=== PATIENT | female | born 1975 | race Caucasian/White ===

== ENCOUNTER 2018-03-11 12:15 | Observation (INO) | payer MEDICARE ==
[2018-03-11 12:50] LABS: #Basophils 0.1 thou/uL (0.0-0.2); #Eosinphils 0.2 thou/uL (0.0-0.7); #Lymphocytes 2.3 thou/uL (1.20-3.40); #Monocytes 0.6 thou/uL (0.11-0.59); #Neutrophils 5.9 thou/uL (1.40-6.50); %Eosinophils 1.8 % (0.0-10.0); %Lymphocytes 25.3 % (21.0-51.0); %Monocytes 6.3 % (0.0-10.0); %Neutrophils 65.7 % (42.0-75.0); Hemoglobin 14.9 g/dL (12.0-16.0); Mean Corpuscular HGB CONC 32.2 g/dL (32.0-36.0); Mean Corpuscular Hemoglobin 31.3 pg (27.0-31.0); Mean Corpuscular Volume 97.3 fL (78.0-98.0); Mean Platelet Volume 7.1 fL (7.4-10.4); Platelet Count 340 thou/uL (130-400); RBC Distribution Width 11.6 % (11.5-14.5); Red Blood Cell (RBC) Count 4.75 mill/uL (4.20-5.40)
--- NOTE | 2018-03-11 13:05 | RAD ---
CHEST 1 VIEW: HISTORY: Pain. COMPARISON: None. FINDINGS: Normal cardiac silhouette. Pulmonary vessels and hilum are normal. Blunting of the right costophren ic angle may be due to small effusion or atelectasis. There is partial obscuration of the left hemid iaphragm. No pneumothorax. IMPRESSION: Bibasilar opacities of lungs suggesting a combination of pleural and parenchymal changes. Continued surveillance is recommended. POS: [facility]
[2018-03-11 13:12] LABS: ALT (SGPT) 7 U/L (8-55); AST (SGOT) 14 U/L (5-34); Alkaline Phosphatase 69 U/L (40-150); Anion Gap 17 mmol/L (10-20); BUN (Urea Nitrogen) 9 mg/dL (7.0-18.7); Bilirubin, Total 0.7 mg/dL (0.2-1.2); Calc. Creatinine Clearance 0 mL/min (70-130); Calcium 10.2 mg/dL (7.8-10.44); Carbon Dioxide 22 mmol/L (22-29); Chloride 106 mmol/L (98-107); Estimated GFR-MDRD 75; Globulin 3.1 g/dL (2.4-3.5); Glucose 87 mg/dL (70-105); Protein, Total 7.1 g/dL (6.0-8.3); Sodium 141 mmol/L (136-145)
[2018-03-11 13:17] LABS: CKMB 0.5 ng/mL (0-6.6); Troponin I Less than 0.010 ng/mL (< 0.028)
[2018-03-11] MEDS ORDERED: Ondansetron PF 4 MG/2 ML Vial ONE (13:37)
[2018-03-11] MEDS ORDERED: Famotidine/PF 20 mg/2ml Vial ONE (14:12)
[2018-03-11 15:39] LABS: Troponin I Less than 0.010 ng/mL (< 0.028)
[2018-03-11 16:13] LABS: Bilirubin Moderate (Negative); Blood, Urine Negative (Negative); Clarity TURBID (Clear); Glucose, Urine (Dipstick) Negative (Negative); Leukocyte Small (Negative); Nitrite Negative (Negative); Protein, Urine (Dipstick) Trace mg/dL (Neg-Trace); Specific Gravity, Urine 1.028 (1.002-1.036)
[2018-03-11 16:15] LABS: Bacteria/HPF 4+ HPF (None Seen); Squamous Epithelial 21-50 HPF (0-3)
[2018-03-11 16:18] LABS: Pathc Cast-AUWi Flag 6.96 (0-2.49)
[2018-03-11 16:22] LABS: Amphetamine Not Detected (NotDetected); Barbiturates Screen Not Detected (NotDetected); Benzodiazepine Screen Not Detected (NotDetected); Cocaine Metabolite Screen Not Detected (NotDetected); Medtox Control Line Valid? VALID (VALID); Medtox Reader # READER 1; Methadone Not Detected (NotDetected); Methamphetamine Not Detected (NotDetected); Opiate Screen Not Detected (NotDetected); Oxycodone Screen Not Detected (NotDetected); Phencyclidine (PCP) Not Detected (NotDetected); THC/Cannabinoid Screen Not Detected (NotDetected); Tricyclic Screen Detected (NotDetected)
[2018-03-11] MEDS ORDERED: Nitroglycerin 0.4 MG TAB (25 Tab Bottle) PO PRN (16:29)
[2018-03-11] MEDS ORDERED: Calcium Carbonate 500 MG ChewTAB PO PRN (16:29)
[2018-03-11] MEDS ORDERED: Ondansetron ODT 4 MG TAB PO PRN (16:29)
[2018-03-11 16:30] LABS: Hyaline Casts/LPF NONE SEEN LPF (0-3 Hyaline); Manual Microscopic Reviewed? No Path Casts Seen; RBC/HPF None Seen HPF (0-3); Renal Epithelial None Seen HPF (0-3); Transitional Epithelial NONE SEEN HPF (0-3)
[2018-03-11] MEDS ORDERED: Pantoprazole 40 MG VIAL IVP SCH (16:30)
[2018-03-11 16:45] LABS: Pregnancy Test - Urine (BHCG) Negative (Negative); Pregu Control Background? CLEAR/WHITE (CLR/WHITE); Pregu Control Bar Appear? YES (CONTROL BAR); Specific Gravity 1.028 (1.002-1.036)
--- NOTE | 2018-03-11 17:03 | HP ---
DATE OF ADMISSION: 03/11/2018 PRIMARY CARE PHYSICIAN: Alexander aquino. CHIEF COMPLAINT: Chest discomfort. HISTORY OF PRESENT ILLNESS: The patient is a 42-year-old female who presented to the emergency room with chest discomfort that started last night. It progressively got worse this morning. The pain wa s mainly in the epigastric region. It got worse whenever she took deep breaths. She had several epi sodes of vomiting. She was unable to keep any food down. She denies any aggravating or relieving fa ctors. No diaphoresis, palpitations, syncope reported. She denies recent immobilization or travel. In the emergency room, initial vital signs showed temperature 98.3, respirations 17, pulse rate of 86 with a blood pressure 175/93 with O2 saturation 100% on room air. EKG showed sinus rhythm without s ignificant ST-T wave changes. Chest x-ray was negative for infiltrate. She received Zofran, Pepcid, and IV fluids in the emergency room. PAST MEDICAL HISTORY: 1. Peripheral neuropathy. 2. Seizure disorder. 3. Anxiety. 4. Obesity. PAST SURGICAL HISTORY: 1. Appendectomy. 2. Cholecystectomy. 3. Hernia repair. 4. Exploratory laparotomy, details unavailable. ALLERGIES: No known drug allergies. CURRENT HOME MEDICATIONS: The patient is unable to recall all of her medication. She states that qing argueta takes gabapentin, Keppra, Singulair and Flexeril. SOCIAL HISTORY: Patient currently lives at the [place]. She denies current use of tobacco, alcohol or drug use. FAMILY HISTORY: Negative for premature coronary artery disease. REVIEW OF SYSTEMS: The following complete review of systems was negative, unless otherwise mentioned in the HPI or below: Constitutional: Weight loss or gain, ability to conduct usual activities. Sk in: Rash, itching. Eyes: Double vision, pain. ENT/Mouth: Nose bleeding, neck stiffness, pain, te nderness. Cardiovascular: Palpitations, dyspnea on exertion, orthopnea. Respiratory: Shortness of breath, wheezing, cough, hemoptysis, fever or night sweats. Gastrointestinal: Poor appetite, abdom inal pain, heartburn, nausea, vomiting, constipation, or diarrhea. Genitourinary: Urgency, frequenc y, dysuria, nocturia. Musculoskeletal: Pain, swelling. Neurologic/Psychiatric: Anxiety, depressio n. Allergy/Immunologic: Skin rash, bleeding tendency. PHYSICAL EXAMINATION: VITAL SIGNS: As discussed above. GENERAL: A 42-year-old female in no apparent distress. Denies any chest discomfort. HEENT: Head atraumatic, normocephalic. Sclerae are anicteric. Moist mucous membrane, no oral lesio n. NECK: Supple, no JVD, no carotid bruit. LUNGS: Clear to auscultation bilaterally, no wheezing, rales or rhonchi. HEART: S1, S2 present. Regular rate and rhythm. No murmur, rubs, or gallops appreciated. ABDOMEN: Soft. There was epigastric tenderness without any rebound, guarding, no costovertebral ang le tenderness. EXTREMITIES: No edema or calf tenderness. NEUROLOGIC: Grossly nonfocal, moves all four extremities. PSYCHIATRY: Alert, awake, oriented x3. SKIN: Warm and dry. LYMPH NODES: No palpable lymph nodes in the neck. PERIPHERAL VASCULAR: Radial pulses palpable bilaterally. MUSCULOSKELETAL: No joint swelling or tenderness. LABORATORY AND X-RAY FINDINGS: Urine drug screen was essentially negative. CBC showed WBC 9 with he moglobin 14.9, hematocrit 46.2, platelet 340. Chemistries showed sodium 141, potassium 4, chloride 1 06, bicarbonate 22, BUN 9, creatinine 0.84. LFTs in normal range. Lipase was normal. Troponin nega tive. EKG by my review as discussed above. Chest x-ray by my review as discussed above. IMPRESSION AND PLAN: 1. Epigastric pain with nausea, vomiting. Her symptoms are probably consistent with acute gastroent eritis. She had a normal bowel movement this morning. We will get a KUB to rule out obstruction giv en her history of multiple abdominal surgeries. Chest pain is unlikely to be cardiac. We will start her on gentle IV fluid. Start proton pump inhibitors. Antiemetics. 2. Peripheral neuropathy. We will continue gabapentin once dose confirmed. 3. Seizure disorder. We will continue Keppra once dose confirmed. 4. Mild intermittent asthma. We will continue Singulair. Plan of care was discussed with the patient in detail. She stated understanding.
--- NOTE | 2018-03-11 17:31 | RAD ---
TWO VIEW ABDOMEN: 03/11/18 Supine and upright views obtained. INDICATION: Epigastric pain. FINDINGS: Stool and gas throughout the colon. The bowel gas pattern unremarkable. No evidence of free intraperi toneal air. Postop changes are seen with radiopaque suture and surgical clips overlying the upper abd omen. IMPRESSION: No acute abnormality apparent. POS: [facility]
[2018-03-11 18:14] VITALS: BMI 36.2
[2018-03-11] MEDS: Sodium Chloride 0.9% 1,000 ML IV SCH (20:24)
[2018-03-11] MEDS: cefTRIAXone\\ROCEPHIN 1 GM in Sodium Chloride 0.9% 100 ML IVPB SCH (20:24)
[2018-03-11] MEDS: Pantoprazole 40 MG VIAL IVP SCH (20:25)
[2018-03-11] MEDS: Acetaminophen 325 MG TAB PO PRN (20:25)
[2018-03-11] MEDS ORDERED: levETIRAcetam 500 MG TAB PO SCH (21:00)
[2018-03-11] MEDS: Montelukast Sodium 10 mg Tablet PO SCH (21:09)
[2018-03-11] MEDS: Cyclobenzaprine 10 MG TAB PO PRN (21:09)
[2018-03-11] MEDS: HYDROcodone/Acetaminophen 10/325 mg Tablet PO PRN (21:10)
[2018-03-11] MEDS: levETIRAcetam 500 MG TAB PO SCH (21:10)
[2018-03-11] MEDS: Ondansetron PF 4 MG/2 ML Vial IVP PRN (21:11)
[2018-03-11] MEDS: Simethicone Chewable 80 MG TAB PO PRN (23:09)
[2018-03-12] MEDS: Ondansetron PF 4 MG/2 ML Vial IVP PRN ×2 (01:28→18:16)
[2018-03-12 08:20] LABS: #Basophils 0.1 thou/uL (0.0-0.2); #Eosinphils 0.2 thou/uL (0.0-0.7); #Lymphocytes 2.4 thou/uL (1.20-3.40); #Monocytes 0.6 thou/uL (0.11-0.59); #Neutrophils 4.9 thou/uL (1.40-6.50); %Basophils 0.7 % (0.0-1.0); %Eosinophils 2.6 % (0.0-10.0); %Lymphocytes 29.6 % (21.0-51.0); %Monocytes 7.5 % (0.0-10.0); %Neutrophils 59.6 % (42.0-75.0); Hemoglobin 13.3 g/dL (12.0-16.0); Mean Corpuscular HGB CONC 31.4 g/dL (32.0-36.0); Mean Corpuscular Hemoglobin 30.8 pg (27.0-31.0); Platelet Count 276 thou/uL (130-400); RBC Distribution Width 11.5 % (11.5-14.5); White Blood Cell (WBC) Count 8.2 thou/uL (4.8-10.8)
[2018-03-12 08:41] LABS: ALT (SGPT) 7 U/L (8-55); AST (SGOT) 14 U/L (5-34); Albumin 3.6 g/dL (3.5-5.0); Alkaline Phosphatase 63 U/L (40-150); Anion Gap 14 mmol/L (10-20); BUN (Urea Nitrogen) 6 mg/dL (7.0-18.7); Bilirubin, Total 0.5 mg/dL (0.2-1.2); Calc. Creatinine Clearance 138 mL/min (70-130); Calcium 9.3 mg/dL (7.8-10.44); Carbon Dioxide 22 mmol/L (22-29); Chloride 105 mmol/L (98-107); Estimated GFR-MDRD 84; Globulin 2.7 g/dL (2.4-3.5); Glucose 80 mg/dL (70-105); Potassium 4.1 mmol/L (3.5-5.1); Protein, Total 6.3 g/dL (6.0-8.3); Sodium 137 mmol/L (136-145)
[2018-03-12] MEDS ORDERED: Iopamidol 370 76% 50 ML VIAL FS ONE (08:53)
[2018-03-12] MEDS ORDERED: ISOVUE-370 76%-LOCM 1 ML ONE (08:53)
[2018-03-12] MEDS ORDERED: Gabapentin 300 MG CAP PO SCH (09:00)
[2018-03-12] MEDS: HYDROcodone/Acetaminophen 10/325 mg Tablet PO PRN ×2 (09:32→22:11)
[2018-03-12] MEDS: levETIRAcetam 500 MG TAB PO SCH ×2 (09:33→22:04)
[2018-03-12] MEDS: Aspirin 81 mg Enteric Coated Tablet PO SCH (09:33)
[2018-03-12] MEDS: lamoTRIgine 100 MG TAB PO SCH (09:33)
[2018-03-12] MEDS: Sodium Chloride 0.9% 1,000 ML IV SCH ×2 (09:33→23:01)
[2018-03-12] MEDS: Pantoprazole 40 MG VIAL IVP SCH ×2 (09:33→22:06)
[2018-03-12] MEDS: Simethicone Chewable 80 MG TAB PO PRN (15:35)
[2018-03-12] MEDS: Acetaminophen 325 MG TAB PO PRN (15:35)
[2018-03-12] MEDS ORDERED: Lidocaine 2% Viscous Solution 10 ML, Aluminum & Magnesium Hydroxide 30 ML SSW SCH (16:00)
--- NOTE | 2018-03-12 17:35 | PDOC.PN ---
- Subjective Encounter Start Date: 03/12/18 Encounter Start Time: 17:30 Subjective: examined patient this morning and again this evening -: f/u of admission for epigastric/chest pain - Objective Resuscitation Status: Resuscitation Status FULL:Full Resuscitation Vital Signs & Weight: Vital Signs (12 hours) Temp Pulse Resp BP Pulse Ox 03/12/18 15:07 97.9 F 69 15 114/80 100 03/12/18 11:33 98.4 F 83 18 123/84 94 L 03/12/18 07:59 98 03/12/18 07:37 97.6 F 87 18 123/61 99 Weight Weight 89.868 kg I&O: 03/11/18 03/12/18 03/13/18 06:59 06:59 06:59 Intake Total 100 956 Balance 100 956 Result Diagrams: 03/12/18 08:10 03/12/18 08:10 Phys Exam - Physical Examination HEENT: PERRLA, moist MMs Neck: no nodes, no JVD Respiratory: clear to auscultation bilateral Cardiovascular: RRR, no significant murmur Gastrointestinal: soft, non-tender, positive bowel sounds Musculoskeletal: pulses present Neurological: non-focal, normal sensation, moves all 4 limbs Lymphatic: no nodes Psychiatric: A&O x 3 Deviation from normal: patient appears anxious Skin: no rash, normal turgor Dx/Plan (1) Epigastric abdominal pain Code(s): R10.13 - EPIGASTRIC PAIN Status: Acute (2) Nausea & vomiting Code(s): R11.2 - NAUSEA WITH VOMITING, UNSPECIFIED Status: Acute (3) UTI (urinary tract infection) Status: Acute (4) Chronic back pain Code(s): M54.9 - DORSALGIA, UNSPECIFIED; G89.29 - OTHER CHRONIC PAIN Status: Chronic - Plan cont current plan of care Talking with pt this evening about possible dc home. Patient still c/o of -: epigastric pain, now with right flank pain. -: Patient also mentioned having a Julieta-en-y gastric bypass sx in 2010 -: Ordered CT of abd/pel w/ contrast- pending -: Continue Rocephin, GI meds, pain meds, recheck labs in AM * .
[2018-03-12] MEDS: cefTRIAXone\\ROCEPHIN 1 GM in Sodium Chloride 0.9% 100 ML IVPB SCH (18:11)
[2018-03-12] MEDS ORDERED: Promethazine HCl 12.5 MG in Sodium Chloride 0.9% 50 ML IVPB PRN (19:34)
[2018-03-12] MEDS ORDERED: Metoclopramide HCl 10 MG/2 ML VIAL IVP PRN (19:35)
[2018-03-12] MEDS ORDERED: lamoTRIgine 100 MG TAB PO SCH (21:00)
[2018-03-12] MEDS ORDERED: Gabapentin 100 MG CAP PO SCH (21:00)
[2018-03-12] MEDS: Montelukast Sodium 10 mg Tablet PO SCH (22:04)
[2018-03-12] MEDS: Cyclobenzaprine 10 MG TAB PO PRN (22:11)
--- NOTE | 2018-03-12 22:50 | CT ---
ABDOMEN CT WITH CONTRAST PELVIC CT WITH CONTRAST 03/12/18 HISTORY: Epigastric pain. Previous gastric bypass. COMPARISON: None. FINDINGS: ABDOMEN CT: Minimal atelectatic changes in the lung bases. Heart size is normal. No significant pericardial fluid . The visualized aorta has a normal caliber. No periaortic fat stranding. Symmetric attenuation of the psoas muscles. Portal vein is patent. Nonspecific minimal periportal edema. Gallbladder is surgically absent. 5 mm hypodensity in the liver, too small to characterize. Otherwise, the liver, spleen, pancreas and adrenal glands are unremarkable. Symmetric enhancement of the kidneys. Bilaterally, no obstructive ur opathy. No gastrohepatic, retrocrural or periportal lymphadenopathy. Limited evaluation of the alimentary canal due to lack of adequate oral contrast administration. Ther e does appear to be a postsurgical change compatible with bariatric surgery. Excluded stomach is unre markable. The gastric remnant that is opacified with a small amount of hyperdense material is also un remarkable. Multiple nondistended, nondilated loops of small bowel are noted. There does appear to be mild focal prominence of a segment of small bowel at the level of small bowel anastomosis in the lef t hemiabdomen. Significance is uncertain. There is a ventral abdominal wall hernia containing mesenteric fat and multiple loops of nonincarcera regina, nondistended, small bowel. The ileocecal junction is normal. Truncated normal caliber appendix i s noted. Scattered fecal material in a nondistended, nondilated colon. Occasional diverticulum. No di verticulitis. There is no mesenteric mass, lymphadenopathy, free air or free fluid. CT PELVIS: The uterus and adnexal structures are unremarkable. No pelvic mass, lymphadenopathy, free air or free fluid. Unremarkable urinary bladder. IMPRESSION: Findings compatible with previous bariatric surgery. There are some nonspecific loops of slightly pro minent small bowel at the level of small bowel anastomosis from the left hemiabdomen. Significance is uncertain. No evidence of an associated high grade obstruction. Nevertheless, general surgical consu ltation may be beneficial given that the small bowel loops distal to this area of prominence are deco mpressed. There is also evidence of ventral abdominal wall hernia containing mesenteric fat and decom pressed loops of small bowel. POS: [facility]
[2018-03-13 04:16] LABS: #Basophils 0.1 thou/uL (0.0-0.2); #Eosinphils 0.3 thou/uL (0.0-0.7); #Lymphocytes 2.7 thou/uL (1.20-3.40); #Monocytes 0.6 thou/uL (0.11-0.59); #Neutrophils 4.4 thou/uL (1.40-6.50); %Eosinophils 3.6 % (0.0-10.0); %Lymphocytes 33.4 % (21.0-51.0); Hemoglobin 12.7 g/dL (12.0-16.0); Mean Corpuscular HGB CONC 32.5 g/dL (32.0-36.0); Mean Corpuscular Hemoglobin 31.7 pg (27.0-31.0); Mean Corpuscular Volume 97.7 fL (78.0-98.0); Mean Platelet Volume 7.5 fL (7.4-10.4); Platelet Count 257 thou/uL (130-400); RBC Distribution Width 11.4 % (11.5-14.5); Red Blood Cell (RBC) Count 3.99 mill/uL (4.20-5.40)
[2018-03-13 04:28] LABS: ALT (SGPT) 9 U/L (8-55); AST (SGOT) 19 U/L (5-34); Albumin 3.2 g/dL (3.5-5.0); Alkaline Phosphatase 60 U/L (40-150); Anion Gap 12 mmol/L (10-20); BUN (Urea Nitrogen) 5 mg/dL (7.0-18.7); Bilirubin, Total 0.3 mg/dL (0.2-1.2); Calc. Creatinine Clearance 144 mL/min (70-130); Calcium 8.6 mg/dL (7.8-10.44); Carbon Dioxide 24 mmol/L (22-29); Chloride 107 mmol/L (98-107); Estimated GFR-MDRD 86; Globulin 2.4 g/dL (2.4-3.5); Glucose 74 mg/dL (70-105); Potassium 3.9 mmol/L (3.5-5.1); Protein, Total 5.6 g/dL (6.0-8.3); Sodium 139 mmol/L (136-145)
[2018-03-13] MEDS: HYDROcodone/Acetaminophen 10/325 mg Tablet PO PRN ×2 (05:53→12:52)
[2018-03-13] MEDS: Aspirin 81 mg Enteric Coated Tablet PO SCH (08:13)
[2018-03-13] MEDS: levETIRAcetam 500 MG TAB PO SCH (08:31)
[2018-03-13] MEDS: Pantoprazole 40 MG VIAL IVP SCH (08:31)
[2018-03-13] MEDS: lamoTRIgine 100 MG TAB PO SCH (08:31)
[2018-03-13] MEDS ORDERED: Gabapentin 100 MG CAP PO SCH (09:00)
[2018-03-13] MEDS: Sodium Chloride 0.9% 1,000 ML IV SCH (10:28)
[2018-03-13] MEDS ORDERED: Metoclopramide HCl 10 MG TAB PO SCH (11:30)
[2018-03-13 13:48] VITALS: BP 140/65; TEMP 97.9
--- NOTE | 2018-03-13 15:03 | DIS ---
DATE OF ADMISSION: 03/11/2018 DATE OF DISCHARGE: 03/13/2018 PRIMARY CARE PHYSICIAN: [facility]. CONSULTATIONS: Dr. Arce was consulted. PROCEDURES: Patient had a chest x-ray which showed bibasilar opacities of the lung suggesting combination of pleural and parenchymal changes. Patient had an abdominal x-ray which showed no acute abnormality. Patient also had an abdomen and pelvis CT which showed nonspecific loops of slightly prominent small bowel at the level of the anastomosis from the left abdomen. No evidence of associated high grade obstruction. General surgical consultation beneficial given small bowel loops distal to the area of prominence which are decompressed. Evidence of ventral abdominal wall hernia containing mesenteric fat and decompressed loops of small bowel. DISCHARGE DIAGNOSES: 1. Epigastric pain. 2. Chronic back pain. 3. Urinary tract infection. 4. Peripheral neuropathy. 5. Seizure disorder. 6. Intermittent asthma. REVIEW OF SYSTEMS: The patient was examined on the morning of discharge, she reports the epigastric pain is much better. Denies any nausea, vomiting. Reports she was able to eat some soup and keep it down, generally feels better, although all other systems were reviewed and are negative unless mentioned in the hospital course. PHYSICAL EXAMINATION: VITAL SIGNS: Temperature 97.7, pulse is 71, respirations are 18, blood pressure is 115/75, pulse ox is 94% on room air. GENERAL: A 42-year-old female in no apparent distress. Denies any chest discomfort. She is alert and oriented, in no acute distress. HEENT: Head is atraumatic, normocephalic. Mucous moist membranes. No oral lesions. NECK: Supple, no JVD. Normal range of motion. LUNGS: Clear to auscultation bilaterally. No wheezing, rales or rhonchi. HEART: S1, S2, regular rate and rhythm. No murmurs or rubs. ABDOMEN: Soft, nontender on palpation. Bowel sounds are heard x4. EXTREMITIES: No edema or calf tenderness. NEUROLOGIC: Grossly nonfocal, no sensory or focal deficits. SKIN: Warm and dry, normal in color. PSYCHIATRIC: Alert, awake, oriented x3. HOSPITAL COURSE: Ms. Middleton is a pleasant 42-year-old female who presented to the emergency room for epigastric pain, nausea, vomiting, reported some chest discomfort and epigastric pain. She was admitted to the observation unit for further management. UA consistent with the UTI. A culture was ordered and grew E. coli. Rocephin was started on day of admission. The patient had some intermittent nausea, vomiting yesterday, was complaining of pain that radiated to the right flank. The patient had a CT abdomen and pelvis findings above and had a hard time with keeping the oral contrast down, was given Zofran and Reglan. After the CT scan states that she feels better, was able to keep food down. Dr. Arce was consulted and he looked at the CT abdomen and stated that he would be able to see her in the office to discuss that hernia repair, did not see anything acute. The patient's vital signs have remained stable. Labs have remained unremarkable and the patient was discharged home. MEDICATIONS: Home medications were started, which included Flexeril 10 mg p.o. t.i.d. p.r.n.; gabapentin 100 mg p.o. q.a.m. and 200 mg p.o. at bedtime; hydrocodone 10 mg p.o. b.i.d.; Lamictal 100 mg p.o. q.a.m., 100 mg p.o. at bedtime; Keppra 2 tabs p.o. b.i.d.; Singulair 1 tab p.o. daily; Protonix 1 tab p.o. daily. Added on this visit, cefdinir 300 mg p.o. b.i.d., Reglan 10 mg p.o. t.i.d. as needed, Zofran 4 mg p.o. q.6 hours as needed. ALLERGIES: No known drug allergies. CONDITION: Stable. Patient discharged home. REFERRAL: [facility] within 1 week, [address]. Arce at his next available appointment. [facility]
== END 2018-03-13 14:09 | disposition home or self-care (01) ==
LOC: ERS 12:15 → 2SW 17:31
PROVIDERS: ADMIT Internal Medicine; ATTEND Internal Medicine
DX: R10.13 Epigastric pain (principal); G40.909 Epilepsy, unspecified, not intractable, without status epilepticus; N39.0 Urinary tract infection, site not specified; B96.20 Unspecified Escherichia coli [E. coli] as the cause of diseases classified elsewhere; F41.9 Anxiety disorder, unspecified; G62.9 Polyneuropathy, unspecified; J45.20 Mild intermittent asthma, uncomplicated; G89.29 Other chronic pain; M54.9 Dorsalgia, unspecified; E66.9 Obesity, unspecified; Z68.36 Body mass index [BMI] 36.0-36.9, adult; Z79.899 Other long term (current) drug therapy
CPT/HCPCS: 71045; 74019; 74177; 80053 ×3; 80306; 81025; 82553; 83690; 84484 ×2; 85025 ×3; 87077; 87086; 87186; 93005; 94760 ×2; 96361 ×4; 96365; 96366; 96375 ×3; 96376 ×3; 99285; G0378; 36415; 81003; 81015; 96374; C9113; J0696; J2405; J2550; J2765; J7050; S0028

== ENCOUNTER 2018-05-08 09:30 | Inpatient (IN) | payer MEDICARE ==
[2018-05-07 15:51] VITALS: BMI 35.8
[2018-05-08 10:31] LABS: #Basophils 0.1 thou/uL (0.0-0.2); #Eosinphils 0.1 thou/uL (0.0-0.7); #Lymphocytes 1.6 thou/uL (1.20-3.40); #Monocytes 0.8 thou/uL (0.11-0.59); #Neutrophils 9.8 thou/uL (1.40-6.50); %Basophils 0.5 % (0.0-1.0); %Eosinophils 0.8 % (0.0-10.0); %Lymphocytes 12.8 % (21.0-51.0); %Monocytes 6.2 % (0.0-10.0); %Neutrophils 79.8 % (42.0-75.0); Hemoglobin 13.8 g/dL (12.0-16.0); Mean Corpuscular HGB CONC 33.1 g/dL (32.0-36.0); Mean Corpuscular Hemoglobin 32.1 pg (27.0-31.0); Mean Corpuscular Volume 96.9 fL (78.0-98.0); Mean Platelet Volume 7.4 fL (7.4-10.4); Platelet Count 306 thou/uL (130-400); RBC Distribution Width 12.3 % (11.5-14.5); Red Blood Cell (RBC) Count 4.29 mill/uL (4.20-5.40); White Blood Cell (WBC) Count 12.2 thou/uL (4.8-10.8)
[2018-05-08] MEDS ORDERED: Bupivacaine/Epinephrine 0.25% 30 ML VIAL ONE (10:42)
[2018-05-08 10:45] LABS: BHCG - Serum Negative (NEGATIVE); Pregs Control Background? CLEAR/WHITE (CLR/WHITE); Pregs Control Bar Appear? YES (CONTROL BAR)
[2018-05-08 10:51] LABS: Anion Gap 15 mmol/L (10-20); BUN (Urea Nitrogen) 9 mg/dL (7.0-18.7); Calc. Creatinine Clearance 125 mL/min (70-130); Calcium 9.6 mg/dL (7.8-10.44); Carbon Dioxide 22 mmol/L (22-29); Chloride 107 mmol/L (98-107); Estimated GFR-MDRD 76; Glucose 83 mg/dL (70-105); Potassium 4.6 mmol/L (3.5-5.1); Sodium 139 mmol/L (136-145)
[2018-05-08] MEDS ORDERED: CEFAZOLIN 2 GM/50 ML BAG ONE (11:06)
[2018-05-08] MEDS ORDERED: Midazolam HCl 2 mg/2 ml Vial ONE ×2 (11:06→11:33)
[2018-05-08] MEDS ORDERED: Fentanyl 100 MCG/2 ML VIAL ONE ×4 (11:26→15:09)
[2018-05-08] MEDS ORDERED: HYDROmorphone 2 MG/ML VIAL ONE (14:07)
[2018-05-08] MEDS ORDERED: Zolpidem Tartrate 5 MG TAB PO PRN (14:59)
[2018-05-08] MEDS ORDERED: diphenhydrAMINE 25 MG CAP PO PRN (14:59)
[2018-05-08] MEDS ORDERED: Promethazine HCl 25 MG/ML VIAL IM PRN ×2 (14:59→15:41)
[2018-05-08] MEDS ORDERED: diphenhydrAMINE 50 MG/ML VIAL IM PRN (14:59)
[2018-05-08] MEDS ORDERED: HYDROmorphone 10 mg/100 ml CADD IVPB PRN (14:59)
[2018-05-08] MEDS ORDERED: Ondansetron PF 4 MG/2 ML Vial IVP PRN ×2 (14:59→15:41)
[2018-05-08] MEDS ORDERED: diphenhydrAMINE 50 MG/ML VIAL IVP PRN (14:59)
[2018-05-08] MEDS ORDERED: Naloxone HCl 0.4 mg/ml Vial IV PRN (14:59)
[2018-05-08] MEDS ORDERED: Communication Order-Pharmacy FS SCH (15:00)
[2018-05-08] MEDS ORDERED: Acetaminophen 1,000 MG in Premix Bag 1 BAG IVPB PRN (15:41)
[2018-05-08] MEDS ORDERED: Dextrose 5% in Water 1,000 ML IV PRN (15:41)
[2018-05-08] MEDS ORDERED: hydrALAZINE 20 MG/ML VIAL SLOW IVP PRN (15:41)
[2018-05-08] MEDS ORDERED: Dextrose 50% Abboject 50 ML SYRINGE SLOW IVP PRN (15:41)
[2018-05-08] MEDS ORDERED: diphenhydrAMINE 50 MG/ML VIAL ONE (16:14)
[2018-05-08] MEDS ORDERED: Rocuronium Bromide 10 MG/ML (10ML VIAL) ONE (16:14)
[2018-05-08] MEDS ORDERED: Dexamethasone 20 MG/5 ML VIAL ONE (16:14)
[2018-05-08] MEDS ORDERED: Ketorolac Tromethamine 30 MG/ML VIAL ONE (16:14)
[2018-05-08] MEDS ORDERED: Lidocaine 1% PF 5 ML VIAL ONE (16:14)
[2018-05-08] MEDS ORDERED: Metoclopramide HCl 10 MG/2 ML VIAL ONE (16:14)
[2018-05-08] MEDS ORDERED: Glycopyrrolate 0.2 MG/ML 5 ML SYRINGE ONE (16:14)
[2018-05-08] MEDS ORDERED: Ondansetron PF 4 MG/2 ML Vial ONE (16:14)
[2018-05-08] MEDS ORDERED: PROPOFOL 200 MG/20 ML VIAL ONE (16:14)
[2018-05-08] MEDS: Sodium Chloride 0.9% 1,000 ML IV SCH ×2 (17:38→20:28)
[2018-05-08] MEDS ORDERED: Cyclobenzaprine 10 MG TAB PO PRN (18:06)
[2018-05-08] MEDS ORDERED: Metoclopramide HCl 10 MG TAB PO PRN (18:08)
[2018-05-08] MEDS ORDERED: Ondansetron ODT 4 MG TAB PO PRN (18:09)
[2018-05-08] MEDS: Famotidine 20 MG TAB PO SCH (20:27)
[2018-05-08] MEDS: Famotidine/PF 20 mg/2ml Vial SLOW IVP SCH (20:32)
[2018-05-08] MEDS: levETIRAcetam 500 MG TAB PO SCH (20:35)
[2018-05-08] MEDS ORDERED: Gabapentin 300 MG CAP PO SCH (21:00)
[2018-05-08] MEDS ORDERED: lamoTRIgine 100 MG TAB PO SCH (21:00)
[2018-05-09] MEDS: levETIRAcetam 500 MG TAB PO SCH ×2 (08:13→20:49)
[2018-05-09] MEDS: Famotidine 20 MG TAB PO SCH ×2 (08:13→20:49)
[2018-05-09] MEDS: Famotidine/PF 20 mg/2ml Vial SLOW IVP SCH (08:18)
[2018-05-09] MEDS ORDERED: Montelukast Sodium 10 mg Tablet PO SCH (09:00)
[2018-05-09] MEDS ORDERED: Gabapentin 300 MG CAP PO SCH (09:00)
[2018-05-09] MEDS ORDERED: lamoTRIgine 100 MG TAB PO SCH (09:00)
[2018-05-09] MEDS: Sodium Chloride 0.9% 1,000 ML IV SCH (10:47)
[2018-05-09] MEDS ORDERED: HYDROcodone/Acetaminophen 5/325 mg Tablet PO PRN ×2 (12:02)
[2018-05-09] MEDS ORDERED: traMADol HCl 50 MG TAB PO PRN (12:02)
[2018-05-09] MEDS ORDERED: Acetaminophen 500 MG TAB PO PRN (12:02)
[2018-05-09] MEDS ORDERED: Ondansetron ODT 4 MG TAB PO PRN (12:04)
--- NOTE | 2018-05-09 12:32 | PRG ---
DATE OF SERVICE: 05/09/2018 SUBJECTIVE: Pratibha abarca is doing well today. She underwent robotic converted to open hernia repair and repair of small-bowel injury. She is not having nausea or vomiting. She is tolerating her liquids. Full liquid diet. She wants to advance to a bariatric diet. OBJECTIVE: VITAL SIGNS: 98 degrees, 84, 18, and 131/90. HEAD, EARS, EYES, NOSE, AND THROAT: Unremarkable. LUNGS: Clear to auscultation. CARDIAC: Regular rate and rhythm without murmur or gallop. ABDOMEN: Soft and obese. Surgical wound looks good. She has bowel sounds present. Postoperative tenderness as expected. EXTREMITIES: Unremarkable. LABORATORY DATA: None. ASSESSMENT AND PLAN: Doing well postoperatively open incisional hernia repair. We will plan advancing her diet and observe for another day. Job ID: [id number]
[2018-05-09] MEDS: HYDROcodone/Acetaminophen 10/325 mg Tablet PO PRN (16:38)
[2018-05-09] MEDS: Cyclobenzaprine 10 MG TAB PO PRN ×2 (16:38→23:44)
[2018-05-09] MEDS: Montelukast Sodium 10 mg Tablet PO SCH (20:48)
[2018-05-09] MEDS: lamoTRIgine 100 MG TAB PO SCH (20:48)
[2018-05-09] MEDS: Gabapentin 300 MG CAP PO SCH (20:49)
[2018-05-09] MEDS: traMADol HCl 50 MG TAB PO PRN (20:59)
[2018-05-10] MEDS: HYDROcodone/Acetaminophen 10/325 mg Tablet PO PRN (04:30)
[2018-05-10] MEDS: traMADol HCl 50 MG TAB PO PRN ×2 (04:54→11:44)
[2018-05-10] MEDS: levETIRAcetam 500 MG TAB PO SCH ×2 (08:23→20:36)
[2018-05-10] MEDS: Gabapentin 300 MG CAP PO SCH ×2 (08:23→20:36)
[2018-05-10] MEDS: lamoTRIgine 100 MG TAB PO SCH ×2 (08:23→20:36)
[2018-05-10] MEDS: Famotidine 20 MG TAB PO SCH ×2 (08:23→20:36)
[2018-05-10] MEDS: Cyclobenzaprine 10 MG TAB PO PRN ×2 (15:44→21:48)
[2018-05-10] MEDS: Metoclopramide HCl 10 MG TAB PO PRN ×2 (15:44→21:48)
--- NOTE | 2018-05-10 18:52 | PRG ---
DATE OF SERVICE: 05/10/2018 SUBJECTIVE: Pratibha Middleton is doing well. She has not had any nausea or vomiting. She is tolerating her diet. Bariatric regularly. She is having pain. Her mobility is poor. She has not passed flatus or stool. OBJECTIVE: LUNGS: Clear to auscultation. CARDIAC: Regular rate and rhythm without murmur or gallop. ABDOMEN: Soft. Surgical wound looks good. VITAL SIGNS: 98.6 degrees, 85, and 132/85. ASSESSMENT AND PLAN: The patient is doing well in all regards. Await GI function. Anticipate discharge home Friday tomorrow. Dr. Arce will return. Job ID: [id number]
[2018-05-10] MEDS: Montelukast Sodium 10 mg Tablet PO SCH (20:35)
[2018-05-10] MEDS: Zolpidem Tartrate 5 MG TAB PO PRN (23:20)
[2018-05-11] MEDS: Famotidine 20 MG TAB PO SCH ×2 (08:58→20:31)
[2018-05-11] MEDS: Gabapentin 300 MG CAP PO SCH ×2 (08:58→20:30)
[2018-05-11] MEDS: lamoTRIgine 100 MG TAB PO SCH ×2 (08:58→20:31)
[2018-05-11] MEDS: levETIRAcetam 500 MG TAB PO SCH ×2 (08:59→20:30)
[2018-05-11] MEDS: traMADol HCl 50 MG TAB PO PRN ×2 (09:06→22:44)
--- NOTE | 2018-05-11 14:00 | PDOC.GSPN ---
Surgery Progress Note: Subj - Subjective Narrative: Still with moderate amount of pain. Especially with movement. Not able to get OOB much without help Surgery Progress Note: Obj - Vital signs Vital signs: Vital Signs - Most Recent Temp Pulse Resp BP Pulse Ox 98.4 F 84 16 119/82 97 05/11/18 11:40 05/11/18 11:40 05/11/18 11:40 05/11/18 11:40 05/11/18 11:40 - Physical Exam General: no distress Cardiovascular: regular rate and rhythm Respiratory: clear to auscultation Abdomen: soft, appropriately tender Surgery Progress Note: Results - Labs Result Diagrams: 05/08/18 10:05 05/08/18 10:05 Surgery Progress Note: A/P - Problem (1) Incisional hernia Current Visit: Yes Code(s): K43.2 - INCISIONAL HERNIA WITHOUT OBSTRUCTION OR GANGRENE Status: Acute - Plan Plan: POD#3 -Not much support at home, plan DC home when more mobile
[2018-05-11] MEDS: HYDROcodone/Acetaminophen 10/325 mg Tablet PO PRN ×2 (14:35→18:37)
[2018-05-11] MEDS: Metoclopramide HCl 10 MG TAB PO PRN (19:14)
[2018-05-11] MEDS: Montelukast Sodium 10 mg Tablet PO SCH (20:31)
[2018-05-11] MEDS: Cyclobenzaprine 10 MG TAB PO PRN (20:49)
[2018-05-11] MEDS: Zolpidem Tartrate 5 MG TAB PO PRN (22:44)
[2018-05-12] MEDS: HYDROcodone/Acetaminophen 10/325 mg Tablet PO PRN ×3 (00:18→14:07)
[2018-05-12] MEDS ORDERED: Polyethylene Glycol 3350 17 GM Packet PO SCH (09:00)
[2018-05-12] MEDS: Gabapentin 300 MG CAP PO SCH (09:05)
[2018-05-12] MEDS: Famotidine 20 MG TAB PO SCH (09:05)
[2018-05-12] MEDS: lamoTRIgine 100 MG TAB PO SCH (09:05)
[2018-05-12] MEDS: levETIRAcetam 500 MG TAB PO SCH (09:05)
[2018-05-12] MEDS: traMADol HCl 50 MG TAB PO PRN (09:10)
[2018-05-12 11:51] VITALS: BP 118/80; TEMP 98.3
--- NOTE | 2018-05-15 22:54 | PDOC.GSOPN ---
General Surgery Procedure Note - Operative Note Date: 05/08/18 Pre-op diagnosis: Incisional Hernia Procedure: Laparoscopic converted to open incisional hernia repair with mesh Findings: Significant intra-abdominal adhesions Implants: Ventralex skirted mesh Anesthesia: other (General) Surgeon: Eyal Arce Estimated blood loss: 100 Pathology: none sent Condition: stable - Description of Procedure Details: The patient was taken to the operating room and laid on the operating room table. After anesthetic was obtained a turcios catheter was placed. The abdomen was prepped and draped in a sterile fashion. Left subcostal optiview trocar was placed and high floor pneumoperitoneum was obtained. There was area of deserosalization seen in the adjacent small intestine. There was no open adhesion free areas to place additional trocars. Decision was made to open. Midline incision made over the upper midline hernia. Carefully the abdomen was entered. All intra-abdominal adhesions were taken down to expose all intestine in the abdomen. The small intestine was inspected for injury. There was no full thickness injury seen but a few serosal tears. These were repaired with interupted silk suture. The posterior fascia was cleared of adhesions. Skirted ventralex mesh was brought into the sterile field and a posterior underlay performed. Interupted prolene suture was used to suture the skirt of the mesh to the posterior abdominal wall. The fascia was then able to be closed over the fascia. The subcutaneous tissues were irrigated and closed using vicryl suture. The skin is closed with monocryl and dermabond. There were no complications during the procedure and all instrument, needle and lap counts were correct.
== END 2018-05-12 15:45 | disposition home or self-care (01) | DRG 355 ==
LOC: SDC 09:30 → SURG A 14:28 → OBSVTOIN 05-11 18:13
PROVIDERS: ADMIT Surgery; ATTEND Surgery
PROC: 0WJG4ZZ Inspection of Peritoneal Cavity, Percutaneous Endoscopic Approach (ICD-10-PCS; principal; 2018-05-11)
PROC: 0WUF0JZ Supplement Abdominal Wall with Synthetic Substitute, Open Approach (ICD-10-PCS; 2018-05-11)
DX: K43.2 Incisional hernia without obstruction or gangrene (principal); K66.0 Peritoneal adhesions (postprocedural) (postinfection); Z53.31 Laparoscopic surgical procedure converted to open procedure; G40.909 Epilepsy, unspecified, not intractable, without status epilepticus
CPT/HCPCS: 80048; 84703; 85025; C1781; J0131; J1100; J1170; J1200; J1885; J2001; J2250; J2405; J2704; J2765; J3010; S0028

== ENCOUNTER 2018-05-15 21:55 | Inpatient (IN) | payer MEDICARE ==
[2018-05-15] MEDS ORDERED: Fentanyl 100 MCG/2 ML VIAL ONE (22:44)
[2018-05-16 01:08] VITALS: BMI 35.9
[2018-05-16] MEDS: Dextrose 5 %-0.45 % NaCl 1,000 ML IV SCH ×2 (01:21→09:21)
[2018-05-16] MEDS: Fentanyl 100 MCG/2 ML VIAL SLOW IVP PRN ×11 (01:21→21:53)
[2018-05-16 05:56] LABS: Band 1 % (5-11); Eosinophils 1 % (0-10); Hemoglobin 12.3 g/dL (12.0-16.0); Lymphocytes 28 % (21-51); MDiff Complete? YES; Mean Corpuscular HGB CONC 31.8 g/dL (32.0-36.0); Mean Corpuscular Hemoglobin 31.9 pg (27.0-31.0); Mean Platelet Volume 6.7 fL (7.4-10.4); Monocytes 3 % (0-10); Neutrophil 67 % (42-75); Platelet Count 402 thou/uL (130-400); Platelet Morphology Comment Appears Increased; RBC Distribution Width 12.1 % (11.5-14.5); Red Blood Cell (RBC) Count 3.85 mill/uL (4.20-5.40); White Blood Cell (WBC) Count 10.1 thou/uL (4.8-10.8)
[2018-05-16 06:01] LABS: ALT (SGPT) 31 U/L (8-55); AST (SGOT) 41 U/L (5-34); Albumin 3.2 g/dL (3.5-5.0); Alkaline Phosphatase 92 U/L (40-150); Anion Gap 15 mmol/L (10-20); BUN (Urea Nitrogen) 9 mg/dL (7.0-18.7); Bilirubin, Total 0.4 mg/dL (0.2-1.2); Calc. Creatinine Clearance 145 mL/min (70-130); Calcium 8.7 mg/dL (7.8-10.44); Carbon Dioxide 22 mmol/L (22-29); Chloride 103 mmol/L (98-107); Estimated GFR-MDRD 90; Globulin 3.1 g/dL (2.4-3.5); Glucose 104 mg/dL (70-105); Potassium 3.5 mmol/L (3.5-5.1); Protein, Total 6.3 g/dL (6.0-8.3); Sodium 136 mmol/L (136-145)
[2018-05-16] MEDS ORDERED: Dextrose 5% in Water 1,000 ML IV PRN (10:11)
[2018-05-16] MEDS ORDERED: Dextrose 50% Abboject 50 ML SYRINGE SLOW IVP PRN (10:11)
[2018-05-16] MEDS ORDERED: lamoTRIgine 100 MG TAB PO SCH (11:45)
[2018-05-16] MEDS ORDERED: levETIRAcetam 500 MG TAB PO SCH (11:45)
[2018-05-16] MEDS: D5 1/2 NS w/20 mEq KCL 1,000 ML IV SCH ×2 (11:47→20:21)
[2018-05-16] MEDS: levETIRAcetam 500 MG TAB PO SCH ×3 (11:48→21:26)
[2018-05-16] MEDS ORDERED: Benzocaine 20% Spray 60 ML CAN PO SCH (12:45)
--- NOTE | 2018-05-16 15:09 | HP ---
CHIEF COMPLAINT: Chest pain, nausea, and vomiting. HISTORY: Ms. Middleton is a 43-year-old woman, who underwent a ventral hernia repair by Dr. Arce about a week ago. She went home on Friday, but developed nausea and vomiting. She tried to just push fluids, but started to have worsening chest pain, which became increasingly severe, so she decided to come in to the emergency room. She was taken to [facility] and underwent a CT, which showed bowel obstruction and a fluid collection underlying the hernia repair area and was transferred to [facility] for further care. The patient denies any fevers or chills, and her wounds are healing well. The patient states that she has not had a bowel movement in a week. She is unsure when she last passed gas. She is not really having any abdominal pain, just the pain in her chest. PAST MEDICAL HISTORY: Morbid obesity, status post gastric bypass, anxiety, headaches, and seizure disorder. PAST SURGICAL HISTORY: Gastric bypass, appendectomy, cholecystectomy, and multiple ventral hernia repairs. ALLERGIES: NO KNOWN DRUG ALLERGIES. OUTPATIENT MEDICATIONS: 1. Flexeril. 2. Gabapentin. 3. [place]. 4. Lamotrigine. 5. Reglan. 6. Montelukast. 7. Zofran. 8. Protonix. 9. Levetiracetam. REVIEW OF SYSTEMS: Ten system review of systems is negative except per HPI. SOCIAL HISTORY: The patient does not smoke, drink, or use illicit drugs. FAMILY HISTORY: Noncontributory. LABORATORY DATA: White count is normal at 10 without a left shift, hematocrit is 38, and platelets are 402. Electrolytes are unremarkable. AST is mildly elevated at 41. Other LFTs are normal. CT images are reviewed with our radiologist. The patient has a high-grade proximal small-bowel obstruction with the transition point in the bowel loops underlying the hernia repair. There is a fluid collection anterior to the bowel loops with a few bubbles of gas in it, which could be postsurgical in nature or could represent a developing abscess. The patient has a large amount of fluid up into her esophagus and her gastric pouch is quite dilated. The gastrojejunostomy is widely patent and the proximal portion of the bowel beyond this anastomosis is very dilated. The area of the jejunojejunostomy is decompressed, but looks patent. The actual transition point is not able to be identified. PHYSICAL EXAMINATION: VITAL SIGNS: The patient is afebrile, heart rate 81, respirations 12, 97% saturated on room air, and blood pressure 121/66. GENERAL: Reveals a healthy-appearing woman, in no acute distress. She is not toxic or flushed in appearance. She is not jaundiced or icteric. HEENT: Unremarkable. NECK: Supple without lymphadenopathy or thyroid nodules. HEART: Regular in its rate and rhythm without murmurs, rubs, or gallops. LUNGS: Clear to auscultation bilaterally. ABDOMEN: Soft and nondistended. She is slightly tender to palpation in the epigastrium, but otherwise nontender to palpation. Bowel sounds are present, but somewhat high-pitched. EXTREMITIES: Warm and well perfused without edema. NEUROLOGIC: No focal deficits. PSYCHIATRIC: Alert, oriented, and appropriate. ASSESSMENT: High-grade proximal bowel obstruction. The patient states that she had a lot of adhesions found at the time of her last surgery and the cause of her obstruction is almost certainly due to adhesions, especially as the transition point is felt to be fairly close approximation to her old operative site. Currently, she is not nauseated or having pain. We are going to continue with bowel rest and NG decompression. I encouraged the patient to get up and walk in the hallway frequently. Her NG tube can be clamped for this as well as after she takes her seizure medications. If she does not respond to these measures, then surgery may be necessary. I think that the fluid collection is likely postoperative in nature since the patient does not have any fever or any significant pain in this region, so we will continue to watch that as well. Job ID: [id number]
[2018-05-16] MEDS: Acetaminophen 1,000 MG in Premix Bag 1 BAG IVPB PRN (20:07)
[2018-05-16] MEDS: lamoTRIgine 100 MG TAB PO SCH (21:26)
[2018-05-16] MEDS: Famotidine/PF 20 mg/2ml Vial SLOW IVP SCH (21:29)
[2018-05-16] MEDS: Lorazepam 2 MG/ML VIAL SLOW IVP PRN (21:36)
[2018-05-16] MEDS: Enoxaparin Sodium 40 MG/0.4 ML SYRINGE SC SCH (21:40)
[2018-05-17] MEDS: Fentanyl 100 MCG/2 ML VIAL SLOW IVP PRN ×8 (01:12→23:56)
[2018-05-17] MEDS: D5 1/2 NS w/20 mEq KCL 1,000 ML IV SCH ×3 (03:15→19:13)
[2018-05-17] MEDS: Lorazepam 2 MG/ML VIAL SLOW IVP PRN (03:55)
[2018-05-17] MEDS: Acetaminophen 1,000 MG in Premix Bag 1 BAG IVPB PRN ×2 (04:00→09:44)
[2018-05-17 07:45] LABS: #Eosinphils 0.4 thou/uL (0.0-0.7); #Lymphocytes 1.8 thou/uL (1.20-3.40); #Monocytes 0.7 thou/uL (0.11-0.59); %Basophils 0.6 % (0.0-1.0); %Lymphocytes 26.2 % (21.0-51.0); %Monocytes 9.6 % (0.0-10.0); %Neutrophils 57.7 % (42.0-75.0); Hemoglobin 11.7 g/dL (12.0-16.0); Mean Corpuscular HGB CONC 31.1 g/dL (32.0-36.0); Mean Corpuscular Hemoglobin 31.4 pg (27.0-31.0); Mean Platelet Volume 6.9 fL (7.4-10.4); Platelet Count 363 thou/uL (130-400); RBC Distribution Width 12.2 % (11.5-14.5); Red Blood Cell (RBC) Count 3.72 mill/uL (4.20-5.40); White Blood Cell (WBC) Count 6.9 thou/uL (4.8-10.8)
[2018-05-17 08:05] LABS: Anion Gap 14 mmol/L (10-20); BUN (Urea Nitrogen) Less than 4 mg/dL (7.0-18.7); Calc. Creatinine Clearance 169 mL/min (70-130); Calcium 8.3 mg/dL (7.8-10.44); Carbon Dioxide 22 mmol/L (22-29); Chloride 108 mmol/L (98-107); Estimated GFR-MDRD Greater than 90; Glucose 97 mg/dL (70-105); Potassium 3.8 mmol/L (3.5-5.1); Sodium 140 mmol/L (136-145)
[2018-05-17] MEDS: lamoTRIgine 100 MG TAB PO SCH ×2 (09:30→21:27)
[2018-05-17] MEDS: Famotidine/PF 20 mg/2ml Vial SLOW IVP SCH ×2 (09:31→21:34)
[2018-05-17] MEDS: levETIRAcetam 500 MG TAB PO SCH ×4 (09:31→21:27)
--- NOTE | 2018-05-17 13:21 | PDOC.GSPN ---
Surgery Progress Note: Subj - Subjective Narrative: Patient is feeling better today. She is not really having any abdominal pain and the chest pain hasn't recurred since the NG tube was replaced. It did come out yesterday but the nurses were able to replace it. She has passed some gas. NG output is still thick garcia in color but has decreased in volume. Vital signs are good and white count is normal. Abdomen is soft and nondistended. She is still a little tender to palpation in the upper abdomen. Assessment/plan: High-grade small bowel obstruction and multiply operated patient with gastric bypass and recent placement of mesh. When her NG tube came out yesterday for brief period of time she had recurrence of her chest pain symptoms but these have resolved since the NG tube was replaced. She is head still operator to palpation in the upper abdomen so I am going to give her another 24 hours of decompression. Clinically however she has improved Surgery Progress Note: Obj - Vital signs Vital signs: Vital Signs - Most Recent Temp Pulse Resp BP Pulse Ox 98.3 F 72 14 127/65 97 05/17/18 11:52 05/17/18 11:52 05/17/18 11:52 05/17/18 11:52 05/17/18 11:52 Surgery Progress Note: Results - Labs Result Diagrams: 05/17/18 07:23 05/17/18 07:23 Lab results: Laboratory Results - last 24 hr 05/17/18 05/17/18 07:23 07:23 WBC 6.9 RBC 3.72 L Hgb 11.7 L Hct 37.6 MCV 101.0 H MCH 31.4 H MCHC 31.1 L RDW 12.2 Plt Count 363 MPV 6.9 L Neutrophils % 57.7 Lymphocytes % 26.2 Monocytes % 9.6 Eosinophils % 6.0 Basophils % 0.6 Neutrophils # 4.0 Lymphocytes # 1.8 Monocytes # 0.7 H Eosinophils # 0.4 Basophils # 0.0 Sodium 140 Potassium 3.8 Chloride 108 H Carbon Dioxide 22 Anion Gap 14 BUN Less than 4 L Creatinine 0.61 Estimated GFR (MDRD) Greater than 90 Glucose 97 Calcium 8.3
[2018-05-17] MEDS: Ondansetron PF 4 MG/2 ML Vial IVP PRN (14:07)
[2018-05-17] MEDS: Enoxaparin Sodium 40 MG/0.4 ML SYRINGE SC SCH (21:39)
[2018-05-18] MEDS: Lorazepam 2 MG/ML VIAL SLOW IVP PRN ×2 (00:02→22:17)
[2018-05-18] MEDS: D5 1/2 NS w/20 mEq KCL 1,000 ML IV SCH ×3 (01:32→19:15)
[2018-05-18] MEDS: Fentanyl 100 MCG/2 ML VIAL SLOW IVP PRN ×7 (01:38→22:10)
[2018-05-18] MEDS ORDERED: Acetaminophen 1,000 MG in Premix Bag 1 BAG IVPB PRN (07:48)
--- NOTE | 2018-05-18 07:51 | PDOC.GSPN ---
Surgery Progress Note: Subj - Subjective Patient reports: bowel movement, flatus Narrative: Pain much improved Surgery Progress Note: Obj - Vital signs Vital signs: Vital Signs - Most Recent Temp Pulse Resp BP Pulse Ox 98.2 F 72 16 136/72 99 05/18/18 04:30 05/18/18 04:30 05/18/18 04:30 05/18/18 04:30 05/18/18 04:30 - Physical Exam General: no distress Cardiovascular: regular rate and rhythm Respiratory: clear to auscultation Abdomen: soft, nondistended, positive bowel sounds Wound: healing well Surgery Progress Note: Results - Labs Result Diagrams: 05/17/18 07:23 05/17/18 07:23 Surgery Progress Note: A/P - Problem (1) Nausea & vomiting Current Visit: No Code(s): R11.2 - NAUSEA WITH VOMITING, UNSPECIFIED Status : Acute Assessment and Plan: Better with NG decompression -Gastrograffin SBFT today -added protonix
[2018-05-18] MEDS: Famotidine/PF 20 mg/2ml Vial SLOW IVP SCH ×2 (07:55→22:18)
[2018-05-18] MEDS: lamoTRIgine 100 MG TAB PO SCH ×2 (07:57→22:07)
[2018-05-18] MEDS: levETIRAcetam 500 MG TAB PO SCH ×2 (07:58→22:07)
[2018-05-18] MEDS: Pantoprazole 40 MG VIAL IVP SCH (08:20)
[2018-05-18] MEDS: Ondansetron PF 4 MG/2 ML Vial IVP PRN (11:42)
[2018-05-18] MEDS ORDERED: MD-Gastroview 120 ML BOT ONE (13:02)
--- NOTE | 2018-05-18 16:08 | RAD ---
GASTROGRAFIN SMALL BOWEL FOLLOW-THROUGH: INDICATIONS: Small bowel obstruction. COMPARISON: CT abdomen and pelvis dated 03/12/2018. FINDINGS: Band Ripsaw Operator images demonstrate no significant dilated bowel gas pattern to suggest underlying ileus or part ial small bowel obstruction. There is gas present within the colon. There is a gastric catheter see n within the gastric pouch. There are cholecystectomy clips within the right upper quadrant. Subsequent images, after the administration of 200 mL of Gastrografin, demonstrate filling of the gas tric pouch with slow emptying into the proximal small bowel. The small bowel does not appear appreci ably dilated. At 4-1/2 hours, there was no migration of contrast through the level of the jejunostom y in the left upper quadrant of the abdomen. The proximal small bowel does not appear appreciably di lated, however. The patient did have significant nausea and vomited portions of the Gastrografin on the floor. IMPRESSION: Limited small bowel study. There is no appreciable migration of contrast past the jejunojejunostomy in the left upper quadrant of the abdomen. Findings may reflect sequela of high-grade stenosis of th e jejunojejunostomy or possibly limited contrast filling of the proximal small bowel due to a gastroe nteric anastomotic stricture. Findings were discussed with Dr. Arce at 3:00 p.m. on 05/18/2018. Will go ahead and suspend the remaining evaluation for the small bowel study. The patient is to have a follow-up KUB in the morning, prior to a gastroenterology consultation. POS: [facility]
[2018-05-18] MEDS: Enoxaparin Sodium 40 MG/0.4 ML SYRINGE SC SCH (22:27)
[2018-05-19] MEDS: Fentanyl 100 MCG/2 ML VIAL SLOW IVP PRN ×6 (02:21→21:49)
[2018-05-19] MEDS: D5 1/2 NS w/20 mEq KCL 1,000 ML IV SCH ×3 (03:30→20:04)
[2018-05-19] MEDS: levETIRAcetam 500 MG TAB PO SCH ×2 (08:08→21:41)
[2018-05-19] MEDS: lamoTRIgine 100 MG TAB PO SCH ×2 (08:09→21:42)
[2018-05-19] MEDS: Famotidine/PF 20 mg/2ml Vial SLOW IVP SCH ×2 (08:09→21:39)
[2018-05-19] MEDS: Pantoprazole 40 MG VIAL IVP SCH (08:10)
--- NOTE | 2018-05-19 08:55 | RAD ---
ABDOMEN ONE VIEW: History: Small bowel obstruction. Comparison: Small bowel study, 05-18-18 FINDINGS: Extensive post-operative changes are noted in the abdomen. There is some diffuse increased opacity ov erlying the central abdomen. This could represent some very, very dilute residual contrast within pro ximal mid small bowel loops. There is no evidence for identifiable significantly dense contrast withi n the colon but certainly could suggest high grade proximal small bowel obstruction. IMPRESSION: Hazy increased opacity in the central abdomen which could possibly represent some very dilute contras t media within the residual proximal to mid small bowel loops. No identifiable contrast noted extendi ng into the colon. Extensive post-operative changes. If additional imaging was felt to be needed clin ically, follow up noncontrast CT scan might give additional information. POS: [facility]
--- NOTE | 2018-05-19 11:07 | PRG ---
DATE OF SERVICE: 05/19/2018 SUBJECTIVE: Ms. Middleton had fairly significant nausea and vomiting yesterday as the small bowel follow-through was being done. Contrast never gets beyond the distal portion of the jejunal Julieta limb. She did have a large bowel movement overnight, feels okay this morning with the NG tube back on decompression. OBJECTIVE: VITAL SIGNS: She is afebrile. Vital signs are stable. ABDOMEN: Soft. Minimally distended. Minimally tender. Incision is healing well. No evidence of infection. ASSESSMENT: Partial small-bowel obstruction versus potential gastric outlet obstruction at her gastrojejunostomy. PLAN: Discussed with Dr. Live Angel. He is going to see her and evaluate for possible EGD later on today. Job ID: [id number]
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
[2018-05-19] MEDS ORDERED: Succinylcholine Chloride 20 MG/ML 10 ml SYRINGE FS ONE (15:04)
[2018-05-19] MEDS ORDERED: Lidocaine 1% PF 5 ML VIAL ONE (15:04)
[2018-05-19] MEDS ORDERED: PROPOFOL 200 MG/20 ML VIAL ONE (15:04)
[2018-05-19] MEDS ORDERED: Promethazine HCl 25 MG/ML VIAL SLOW IVP PRN (15:30)
[2018-05-19] MEDS ORDERED: Promethazine HCl 25 MG/ML VIAL IM PRN (15:30)
[2018-05-19] MEDS ORDERED: Ondansetron HCl/PF 4 MG/2 ML Vial IVP PRN (15:30)
[2018-05-19] MEDS ORDERED: Promethazine HCl 25 MG/ML VIAL ONE (15:46)
[2018-05-19] MEDS ORDERED: Fentanyl 100 MCG/2 ML VIAL ONE (15:53)
[2018-05-19] MEDS: Ondansetron PF 4 MG/2 ML Vial IVP PRN (17:26)
--- NOTE | 2018-05-19 19:27 | OP ---
DATE OF PROCEDURE: 05/19/2018 PROCEDURES PERFORMED: Esophagogastroduodenoscopy and push enteroscopy with balloon dilation of gastrojejunal stricture and jejunojejunal stricture. PREOPERATIVE DIAGNOSES: Persistent nausea and vomiting and failure of the Gastrografin in the past beyond the strictured area by imaging study. DESCRIPTION OF PROCEDURE: Informed consent was obtained from the patient. She was sedated with general anesthesia. The bite block was placed and the endoscope was advanced to the proximal jejunum. The esophagus was normal. The GE junction was normal. There was a small stomach pouch consistent with her prior gastric bypass anatomy. There was a stricture at the gastrojejunostomy anastomosis. The diagnostic endoscope could just be barely passed through this opening. That stricture was dilated to 15 mm with a 12 to 15 mm 3-stage balloon. An appropriate tear was identified at the dilation site. The jejunal mucosa appeared normal proximally. There was some mild erosion at the gastrojejunal anastomosis. Exchange was made for the colonoscope. The colonoscope was advanced to the jejunojejunal anastomosis. This area was difficult to reach with tortuosity of the small bowel lumen. There was the stricture around the site of the jejunojejunal anastomosis. There was a staple in this area; however, 2 separate lumens were not clearly identified. This site was dilated to 12 mm with a balloon dilator. After dilation, the colonoscope could then be passed through the strictured area to the more distal jejunum. The site was somewhat edematous and friable. IMPRESSION: 1. Stricture at the gastrojejunostomy anastomosis dilated to 15 mm with a balloon dilator. 2. Stricture at the jejunojejunal anastomosis with surrounding edematous and friable mucosa. This was dilated to 12 mm with a balloon dilator. 3. Post gastric bypass anatomy. RECOMMENDATIONS: Try Gastrografin small bowel followthrough again tomorrow and if this passes through, then she can be advanced to a liquid diet. Job ID: [id number]
[2018-05-19] MEDS: Enoxaparin Sodium 40 MG/0.4 ML SYRINGE SC SCH (21:34)
[2018-05-19] MEDS: Lorazepam 2 MG/ML VIAL SLOW IVP PRN (21:39)
[2018-05-20] MEDS: Fentanyl 100 MCG/2 ML VIAL SLOW IVP PRN ×6 (00:27→22:58)
[2018-05-20] MEDS: D5 1/2 NS w/20 mEq KCL 1,000 ML IV SCH ×2 (02:29→14:57)
[2018-05-20] MEDS: Pantoprazole 40 MG VIAL IVP SCH (10:24)
[2018-05-20] MEDS: Famotidine/PF 20 mg/2ml Vial SLOW IVP SCH (10:24)
[2018-05-20] MEDS: levETIRAcetam 500 MG TAB PO SCH ×2 (10:24→20:33)
[2018-05-20] MEDS: lamoTRIgine 100 MG TAB PO SCH ×2 (10:24→20:32)
--- NOTE | 2018-05-20 11:53 | PDOC.GSPN ---
Surgery Progress Note: Subj - Subjective Narrative: SBFT almost finished today. Contrast already traverses area of previous obstruction. C/O nausea with contrast Surgery Progress Note: Obj - Vital signs Vital signs: Vital Signs - Most Recent Temp Pulse Resp BP Pulse Ox 98.7 F 79 16 111/64 97 05/20/18 08:00 05/20/18 08:00 05/20/18 08:00 05/20/18 08:00 05/20/18 08:00 - Physical Exam General: no distress Cardiovascular: regular rate and rhythm Respiratory: clear to auscultation Abdomen: soft, non tender, positive bowel sounds Wound: healing well Surgery Progress Note: Results - Labs Result Diagrams: 05/17/18 07:23 05/17/18 07:23 Surgery Progress Note: A/P - Problem (1) Nausea & vomiting Current Visit: No Code(s): R11.2 - NAUSEA WITH VOMITING, UNSPECIFIED Status : Acute Assessment and Plan: s/p balloon dilation of both gastro-J and jejuno-j strictures. -SBFT shows contrast past those strictures -I suspect will be able to remove NG later and start clears.
[2018-05-20] MEDS: Promethazine HCl 25 MG/ML VIAL IM PRN (12:04)
--- NOTE | 2018-05-20 13:31 | RAD ---
UPPER GI WITH SMALL BOWEL FOLLOW THROUGH: INDICATIONS: History of stricture at the gastrojejunostomy and jejunojejunostomy, status post dilatation. TECHNIQUE: A single contrast upper GI was performed, utilizing the patient's nasogastric tube, and 120 mL of Gas trografin was instilled by myself during real-time fluoroscopic examination. Small bowel follow thro ugh was performed subsequently. FLUORO TIME 1.3MIN DOSE: 753.8 uGym^2 FINDINGS: There is no evidence of leak at the gastrojejunostomy site, nor at the jejunojejunostomy site. Contr ast flowed freely into the proximal small bowel. Contrast flowed beyond the level of the jejunojejun ostomy site at the 1 hour and 15 minute time lyndsay. Contrast flowed to the level of the colon by the 3 hour time lyndsay. IMPRESSION: 1. Improved contrast flow across the gastrojejunostomy and jejunojejunostomy site when compared to t he prior small bowel follow-through, dated 05/10/2018. 2. No evidence of leak at the gastrojejunostomy or jejunojejunostomy site. POS: [facility]
--- NOTE | 2018-05-20 16:55 | PRG ---
DATE OF SERVICE: 05/20/2018 SUBJECTIVE: Ms. Middleton had nausea with infusion of the Gastrografin for her upper GI and small-bowel follow-through. This resolved after the Gastrografin was aspirated through the NG tube. Overall, she feels better this afternoon, but is still weak. OBJECTIVE: VITAL SIGNS: Temperature 98.5, pulse 79, blood pressure 117/58. GENERAL: She is in no acute distress. She is alert and oriented x3. LUNGS: Clear to auscultation bilaterally. HEART: Regular rate and rhythm without murmur. ABDOMEN: Soft, nontender, nondistended. Bowel sounds are present. EXTREMITIES: No lower extremity edema. IMPRESSION: Stricture at the gastrojejunostomy and 2nd stricture at the jejunojejunostomy, status post balloon dilation. The gastrojejunostomy was dilated to 15 mm. The jejunojejunostomy was dilated to 12 mm. The Gastrografin study shows the contrast to pass through both these areas today. There was some edema and friability around the dilation sites and we may see continued improvement of the passage of liquids through this area over the next day or two. RECOMMENDATIONS: 1. Clear liquid diet. 2. If she tolerates that, she can be advanced per General surgery recommendations. 3. Continue proton pump inhibitor. Job ID: [id number]
[2018-05-20] MEDS: Enoxaparin Sodium 40 MG/0.4 ML SYRINGE SC SCH (20:37)
[2018-05-20] MEDS: Lorazepam 2 MG/ML VIAL SLOW IVP PRN (20:39)
[2018-05-21] MEDS: D5 1/2 NS w/20 mEq KCL 1,000 ML IV SCH ×4 (01:45→21:38)
[2018-05-21] MEDS: Famotidine/PF 20 mg/2ml Vial SLOW IVP SCH ×3 (01:45→20:00)
[2018-05-21] MEDS: Lorazepam 2 MG/ML VIAL SLOW IVP PRN ×2 (01:46→21:45)
[2018-05-21] MEDS: Fentanyl 100 MCG/2 ML VIAL SLOW IVP PRN ×2 (01:54→21:39)
[2018-05-21] MEDS: Pantoprazole 40 MG VIAL IVP SCH (08:52)
[2018-05-21] MEDS: levETIRAcetam 500 MG TAB PO SCH ×2 (08:56→21:36)
[2018-05-21] MEDS: lamoTRIgine 100 MG TAB PO SCH ×2 (08:57→21:37)
[2018-05-21] MEDS ORDERED: Cyclobenzaprine 10 MG TAB PO PRN (12:35)
--- NOTE | 2018-05-21 12:46 | PRG ---
DATE OF SERVICE: 05/21/2018 SUBJECTIVE: Ms. Middleton is tolerating clear liquids. She is not vomiting. No nausea. No abdominal pain. She has her chronic back pain that is bothering her. OBJECTIVE: VITAL SIGNS: She is afebrile. Vital signs are stable. ABDOMEN: Soft. Wound is healing well. 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 Angel. PLAN: Advance to full liquid diet. Potentially, home tomorrow. Will restart her home medications. Job ID: [id number]
[2018-05-21] MEDS: Cyclobenzaprine 10 MG TAB PO PRN (12:53)
[2018-05-21] MEDS: Ondansetron PF 4 MG/2 ML Vial IVP PRN (20:00)
[2018-05-21] MEDS: Enoxaparin Sodium 40 MG/0.4 ML SYRINGE SC SCH (21:38)
[2018-05-22] MEDS: Fentanyl 100 MCG/2 ML VIAL SLOW IVP PRN ×2 (00:53→10:00)
[2018-05-22] MEDS: Cyclobenzaprine 10 MG TAB PO PRN (01:00)
[2018-05-22] MEDS: Promethazine HCl 25 MG/ML VIAL IM PRN ×2 (03:00→12:49)
[2018-05-22] MEDS ORDERED: Acetaminophen 325 MG TAB PO PRN ×2 (07:28→15:06)
[2018-05-22] MEDS ORDERED: Acetaminophen 1,000 MG in Premix Bag 1 BAG IVPB SCH (07:30)
[2018-05-22] MEDS: D5 1/2 NS w/20 mEq KCL 1,000 ML IV SCH ×2 (07:33→16:49)
[2018-05-22] MEDS: Pantoprazole 40 MG VIAL IVP SCH (08:21)
[2018-05-22] MEDS: Famotidine/PF 20 mg/2ml Vial SLOW IVP SCH ×2 (08:21→21:09)
[2018-05-22] MEDS: Montelukast Sodium 10 mg Tablet PO SCH (08:22)
[2018-05-22] MEDS: lamoTRIgine 100 MG TAB PO SCH ×2 (08:22→21:14)
[2018-05-22] MEDS: levETIRAcetam 500 MG TAB PO SCH ×2 (08:22→21:09)
[2018-05-22] MEDS ORDERED: Montelukast Sodium 10 mg Tablet PO SCH (09:00)
[2018-05-22] MEDS ORDERED: lamoTRIgine 100 MG TAB PO SCH (09:00)
[2018-05-22 11:21] LABS: Mean Corpuscular HGB CONC 32.3 g/dL (32.0-36.0); Mean Corpuscular Hemoglobin 32.1 pg (27.0-31.0); Mean Corpuscular Volume 99.4 fL (78.0-98.0); Mean Platelet Volume 7.2 fL (7.4-10.4); Platelet Count 442 thou/uL (130-400); RBC Distribution Width 12.1 % (11.5-14.5); Red Blood Cell (RBC) Count 4.05 mill/uL (4.20-5.40); White Blood Cell (WBC) Count 23.9 thou/uL (4.8-10.8)
[2018-05-22 11:39] LABS: Anion Gap 12 mmol/L (10-20); BUN (Urea Nitrogen) 4 mg/dL (7.0-18.7); Calc. Creatinine Clearance 143 mL/min (70-130); Calcium 8.7 mg/dL (7.8-10.44); Carbon Dioxide 23 mmol/L (22-29); Chloride 105 mmol/L (98-107); Estimated GFR-MDRD 89; Glucose 110 mg/dL (70-105); Sodium 136 mmol/L (136-145)
[2018-05-22 12:02] LABS: Band 3 % (5-11); Eosinophils 1 % (0-10); Lymphocytes 7 % (21-51); MDiff Complete? YES; Macrocytosis SLIGHT = 6-15 cells (100X) (0-5/hpf); Monocytes 3 % (0-10); Neutrophil 82 % (42-75); Platelet Morphology Comment Appears Increased; Reactive Lymphocytes 4 % (0-10)
--- NOTE | 2018-05-22 14:32 | PRG ---
DATE OF SERVICE: 05/22/2018 SUBJECTIVE: Ms. Middleton had a bad night. She did not sleep well. She had more nausea and bloating after full liquid diet for dinner. Her temperature max was 101 this morning. She stated that she felt ill this morning. She is better now. She was tolerating the clear liquids without difficulty. She has been doing only sips of clears today because she is worried about the bloated sensation. She has had multiple voids thus far today. OBJECTIVE: VITAL SIGNS: Pulse 85, respirations 18, O2 saturation 93% on room air, blood pressure 96/63. LABORATORY DATA: White blood cell count today is up to 23, hemoglobin is 13, platelet count is 442. Sodium 136, potassium 4.0, creatinine 0.72. Small bowel follow through on May 20, showed no residual significant obstruction at either the jejunojejunostomy stenosis or the gastro J stenosis with free flow of contrast all the way to colon. PLAN: Dr. Angel thought that she would likely have some persistent mild obstruction secondary to the edema, so we will continue observation, IV fluids. I started antibiotics. We will check UA and chest x-ray. She has vomited a few times, want to rule out aspiration. Job ID: [id number]
[2018-05-22] MEDS ORDERED: traMADol HCl 50 MG TAB PO PRN ×2 (15:05)
[2018-05-22] MEDS: Piperacillin/Tazobactam 3.375 GM in Sodium Chloride 0.9% 100 ML IVPB SCH ×2 (15:36→21:03)
--- NOTE | 2018-05-22 15:37 | RAD ---
PORTABLE AP CHEST XRAY: DATE: 05/22/2018. HISTORY: Fever. COMPARISON: 03/11/2018. FINDINGS: Again noted is blunting of the right costophrenic angle which may be related to mild pleural and pare nchymal scarring. However, there has been interval development of mild patchy densities at the right lung base which could be related to developing area of pneumonitis/pneumonia. There is mild linear atelectasis versus scarring at the left lung base. Cardiac silhouette and pulmonary vasculature are within normal limits. Surgical clips again overlie the right upper quadrant. No other interval brooks ge. IMPRESSION: 1. Interval development of patchy density right lung base which may be related to developing pneumon ia. Followup to complete resolution is recommended. 2. Stable blunting of the right lateral costophrenic angle probably related to pleural and parenchym al scarring. POS: [facility]
[2018-05-22] MEDS ORDERED: Promethazine HCl 25 MG/ML VIAL IVPB PRN (16:37)
--- NOTE | 2018-05-22 16:55 | PRG ---
DATE OF SERVICE: 05/22/2018 SUBJECTIVE: Ms. Middleton became bloated last night and had a vomiting episode. This made her very anxious. She also started coughing and then that caused her to compress her stomach and she vomited some with that. OBJECTIVE: VITAL SIGNS: Temperature 97.4, pulse 85, blood pressure 104/71, and oxygen saturation 93%, which is lower than she had been running. LUNGS: Clear to auscultation bilaterally. HEART: Regular rate and rhythm. ABDOMEN: Soft, mild tenderness in the left periumbilical to left epigastric region. Her bowel sounds are present. EXTREMITIES: No lower extremity edema. Chest x-ray did show some density in the right lung base. She has been started on antibiotics for this. IMPRESSION: 1. 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 2. Jejunal to jejunal anastomosis, status post dilation to 12 mm. 3. There was significant amount of edema in the proximal jejunum and tortuosity to this part of the small bowel. Hopefully, her nausea and vomiting will improve as the edema and swelling improves. I doubt she would have restenosed the dilation site so quickly. Gastrografin passed through well. 4. Pneumonia versus atelectasis. She has been started on antibiotics. PLAN: 1. She states that the ondansetron has not been helping and prefers Phenergan. We will change from IM administration to IV piggyback with the promethazine. 2. She is tolerating a small amount of clear liquids so far this morning. I will follow up on Friday. Please call Dr. Villa if needed over the weekend. Job ID: [id number]
[2018-05-22] MEDS: HYDROcodone/Acetaminophen 7.5/325 mg Tablet PO PRN ×2 (17:04→21:06)
[2018-05-22] MEDS: Enoxaparin Sodium 40 MG/0.4 ML SYRINGE SC SCH (21:11)
[2018-05-22 21:42] LABS: Bilirubin Small (Negative); Blood, Urine Negative (Negative); Clarity CLEAR (Clear); Glucose, Urine (Dipstick) Negative (Negative); Leukocyte Negative (Negative); Nitrite Negative (Negative); Protein, Urine (Dipstick) Trace mg/dL (Neg-Trace); Urobilinogen 0.2 mg/dL (0.2-1.0); pH, Urine 5.5 (5.0-9.0)
[2018-05-22 21:45] LABS: Bacteria/HPF None Seen HPF (None Seen); Hyaline Casts/LPF 0-3 HYALINE CAST LPF (0-3 Hyaline); Pathc Cast-AUWi Flag 0.58 (0-2.49); Squamous Epithelial 21-50 HPF (0-3); WBC/HPF 0-3 HPF (0-3)
[2018-05-22 21:47] LABS: Specific Gravity, Urine 1.045 (1.002-1.036)
[2018-05-22 21:48] LABS: RBC/HPF 0-3 HPF (0-3)
[2018-05-22] MEDS: Lorazepam 2 MG/ML VIAL SLOW IVP PRN (23:05)
[2018-05-22] MEDS: Promethazine HCl 25 MG in Sodium Chloride 0.9% 50 ML IVPB PRN (23:39)
[2018-05-23] MEDS: D5 1/2 NS w/20 mEq KCL 1,000 ML IV SCH ×5 (01:43→21:52)
[2018-05-23] MEDS: Piperacillin/Tazobactam 3.375 GM in Sodium Chloride 0.9% 100 ML IVPB SCH ×4 (03:55→21:52)
[2018-05-23] MEDS: HYDROcodone/Acetaminophen 7.5/325 mg Tablet PO PRN ×3 (03:56→23:19)
[2018-05-23] MEDS: Famotidine/PF 20 mg/2ml Vial SLOW IVP SCH ×2 (10:00→22:16)
[2018-05-23] MEDS: Montelukast Sodium 10 mg Tablet PO SCH (10:00)
[2018-05-23] MEDS: levETIRAcetam 500 MG TAB PO SCH ×2 (10:00→23:11)
[2018-05-23] MEDS: lamoTRIgine 100 MG TAB PO SCH ×2 (10:00→23:12)
[2018-05-23] MEDS: Pantoprazole 40 MG VIAL IVP SCH (10:11)
[2018-05-23 11:34] LABS: #Basophils 0.1 thou/uL (0.0-0.2); #Eosinphils 0.4 thou/uL (0.0-0.7); #Monocytes 0.7 thou/uL (0.11-0.59); #Neutrophils 9.7 thou/uL (1.40-6.50); %Basophils 0.7 % (0.0-1.0); %Lymphocytes 15.8 % (21.0-51.0); %Monocytes 5.1 % (0.0-10.0); %Neutrophils 75.4 % (42.0-75.0); Hemoglobin 12.9 g/dL (12.0-16.0); Mean Corpuscular HGB CONC 31.8 g/dL (32.0-36.0); Mean Corpuscular Hemoglobin 32.5 pg (27.0-31.0); Platelet Count 391 thou/uL (130-400); RBC Distribution Width 12.1 % (11.5-14.5); Red Blood Cell (RBC) Count 3.96 mill/uL (4.20-5.40); White Blood Cell (WBC) Count 12.8 thou/uL (4.8-10.8)
[2018-05-23] MEDS: Metoclopramide 10 MG/10 ML UDCUP PO SCH ×4 (12:57→22:20)
[2018-05-23] MEDS: Promethazine HCl 25 MG in Sodium Chloride 0.9% 50 ML IVPB PRN (19:13)
[2018-05-23] MEDS: Enoxaparin Sodium 40 MG/0.4 ML SYRINGE SC SCH (22:20)
[2018-05-23] MEDS ORDERED: Metoclopramide HCl 10 MG/2 ML VIAL IVP SCH (22:30)
[2018-05-23] MEDS: Gabapentin 300 MG CAP PO SCH (23:11)
[2018-05-23] MEDS: Lorazepam 2 MG/ML VIAL SLOW IVP PRN (23:14)
[2018-05-24] MEDS: HYDROcodone/Acetaminophen 7.5/325 mg Tablet PO PRN (03:08)
[2018-05-24] MEDS: Piperacillin/Tazobactam 3.375 GM in Sodium Chloride 0.9% 100 ML IVPB SCH ×4 (04:06→22:20)
[2018-05-24] MEDS: Metoclopramide HCl 10 MG/2 ML VIAL IVP SCH ×3 (06:34→21:01)
[2018-05-24] MEDS: levETIRAcetam 500 MG TAB PO SCH ×2 (08:10→21:09)
[2018-05-24] MEDS: lamoTRIgine 100 MG TAB PO SCH ×2 (08:11→21:09)
[2018-05-24] MEDS: Gabapentin 300 MG CAP PO SCH ×2 (08:11→21:11)
[2018-05-24] MEDS: Montelukast Sodium 10 mg Tablet PO SCH (08:12)
[2018-05-24] MEDS: Pantoprazole 40 MG VIAL IVP SCH (08:15)
[2018-05-24] MEDS: Famotidine/PF 20 mg/2ml Vial SLOW IVP SCH ×2 (08:15→21:06)
[2018-05-24] MEDS: D5 1/2 NS w/20 mEq KCL 1,000 ML IV SCH ×2 (12:51→17:06)
[2018-05-24] MEDS: Cyclobenzaprine 10 MG TAB PO PRN ×2 (14:48→22:18)
[2018-05-24] MEDS: Enoxaparin Sodium 40 MG/0.4 ML SYRINGE SC SCH (21:04)
[2018-05-24] MEDS: Lorazepam 2 MG/ML VIAL SLOW IVP PRN (22:18)
[2018-05-25] MEDS: Piperacillin/Tazobactam 3.375 GM in Sodium Chloride 0.9% 100 ML IVPB SCH ×4 (03:39→21:05)
[2018-05-25] MEDS: Metoclopramide HCl 10 MG/2 ML VIAL IVP SCH ×3 (03:40→21:05)
[2018-05-25] MEDS: D5 1/2 NS w/20 mEq KCL 1,000 ML IV SCH ×4 (07:16→22:15)
[2018-05-25] MEDS: Pantoprazole 40 MG VIAL IVP SCH (07:45)
[2018-05-25] MEDS: Famotidine/PF 20 mg/2ml Vial SLOW IVP SCH ×2 (07:45→21:11)
[2018-05-25] MEDS: Gabapentin 300 MG CAP PO SCH ×2 (07:46→21:11)
[2018-05-25] MEDS: Montelukast Sodium 10 mg Tablet PO SCH (07:46)
[2018-05-25] MEDS: levETIRAcetam 500 MG TAB PO SCH ×2 (07:47→21:11)
[2018-05-25] MEDS: lamoTRIgine 100 MG TAB PO SCH ×2 (07:48→21:10)
--- NOTE | 2018-05-25 10:02 | PRG ---
DATE OF SERVICE: 05/23/2018 SUBJECTIVE: The patient reports she is having frequent nausea, but is tolerating liquids. She is passing bowel movement and flatus. She requests that she get her Neurontin. She says Phenergan works much better than the Zofran. OBJECTIVE: GENERAL: On examination, she is awake, alert. She is up and walking. She is morbidly obese. VITAL SIGNS: Her temperature is 97.8, pulse 75, blood pressure 105/72. ABDOMEN: Soft. She has had three bowel movements that were recorded. She is voiding well. LABORATORY DATA: Yesterday, her white count spiked to 23.9. We have no other evidence of any issues, so the plan is to repeat the CBC today. We will give her back her Neurontin and Reglan. Job ID: [id number]
--- NOTE | 2018-05-25 10:13 | PRG ---
DATE OF SERVICE: 05/24/2018 SUBJECTIVE: The patient states she is feeling better today, less nauseous. She is tolerating full liquids pretty well, but she still feels that she needs some help with ambulation. She is passing flatus. She thinks she might have had a bowel movement yesterday. OBJECTIVE: GENERAL: On examination, she is awake, alert, does not appear to be in any distress. VITAL SIGNS: Her temperature is 98.3, pulse 76, blood pressure 99/70. ABDOMEN: Soft. Incisions healing well. Nondistended. ASSESSMENT: Doing well. PLAN: Consult the Walking Service and PT, hopefully home soon. Job ID: [id number]
--- NOTE | 2018-05-25 11:59 | PDOC.GSPN ---
Surgery Progress Note: Subj - Subjective Patient reports: no new complaints, tolerating liquids well Surgery Progress Note: Obj - Vital signs Vital signs: Vital Signs - Most Recent Temp Pulse Resp BP Pulse Ox 99.1 F 89 18 109/74 93 L 05/25/18 07:10 05/25/18 07:10 05/25/18 07:10 05/25/18 07:10 05/25/18 07:10 - Physical Exam General: no distress Cardiovascular: regular rate and rhythm Respiratory: clear to auscultation Abdomen: soft, non tender, nondistended Wound: healing well Surgery Progress Note: Results - Labs Result Diagrams: 05/23/18 11:26 05/22/18 10:56 Surgery Progress Note: A/P - Problem (1) Nausea & vomiting Current Visit: No Code(s): R11.2 - NAUSEA WITH VOMITING, UNSPECIFIED Status : Acute Assessment and Plan: Now tolerating liquids better -GI soft diet -restart her colace -ambulating well -likely home tomorrow
[2018-05-25] MEDS: Cyclobenzaprine 10 MG TAB PO PRN ×2 (15:07→21:26)
[2018-05-25] MEDS: HYDROcodone/Acetaminophen 7.5/325 mg Tablet PO PRN ×2 (15:08→21:08)
--- NOTE | 2018-05-25 15:22 | PRG ---
DATE OF SERVICE: 05/25/2018 SUBJECTIVE: Ms. Middleton tolerated liquids over the weekend. She has been started on a soft diet today. OBJECTIVE: VITAL SIGNS: Temperature 98.4, pulse 90, blood pressure 106/75. GENERAL: She is in no acute distress. She is awake and alert. LUNGS: Clear to auscultation bilaterally. HEART: Regular rate and rhythm without murmur. ABDOMEN: Soft, nontender, and nondistended. Bowel sounds are present. EXTREMITIES: No lower extremity edema. IMPRESSION: 1. Strictures at the gastrojejunostomy anastomosis and jejunojejunostomy anastomosis, dilated with balloon endoscopically. 2. Chronic nausea and dyspepsia with history of gastric bypass and status post hernia repair. She seems to have improved over the weekend. RECOMMENDATIONS: We will see how she tolerates advancing the diet. Job ID: [id number]
[2018-05-25] MEDS: Enoxaparin Sodium 40 MG/0.4 ML SYRINGE SC SCH (21:04)
[2018-05-25] MEDS: Lorazepam 2 MG/ML VIAL SLOW IVP PRN (21:08)
[2018-05-25] MEDS: Docusate 100 MG CAP PO SCH (21:10)
[2018-05-26] MEDS: Piperacillin/Tazobactam 3.375 GM in Sodium Chloride 0.9% 100 ML IVPB SCH ×4 (03:28→20:26)
[2018-05-26] MEDS: HYDROcodone/Acetaminophen 7.5/325 mg Tablet PO PRN ×3 (03:29→22:01)
[2018-05-26] MEDS: Metoclopramide HCl 10 MG/2 ML VIAL IVP SCH ×3 (03:29→20:26)
[2018-05-26] MEDS: Montelukast Sodium 10 mg Tablet PO SCH (07:46)
[2018-05-26] MEDS: Gabapentin 300 MG CAP PO SCH ×2 (07:46→20:26)
[2018-05-26] MEDS: levETIRAcetam 500 MG TAB PO SCH ×2 (07:47→20:26)
[2018-05-26] MEDS: Famotidine/PF 20 mg/2ml Vial SLOW IVP SCH ×2 (07:47→20:26)
[2018-05-26] MEDS: lamoTRIgine 100 MG TAB PO SCH ×2 (09:09→20:24)
[2018-05-26] MEDS: Docusate 100 MG CAP PO SCH ×2 (09:09→20:26)
[2018-05-26] MEDS: Pantoprazole 40 MG VIAL IVP SCH (09:09)
--- NOTE | 2018-05-26 09:36 | PDOC.GSPN ---
Surgery Progress Note: Subj - Subjective Patient reports: no new complaints, tolerating a regular diet Surgery Progress Note: Obj - Vital signs Vital signs: Vital Signs - Most Recent Temp Pulse Resp BP Pulse Ox 98.2 F 77 18 113/80 100 05/26/18 07:49 05/26/18 07:49 05/26/18 07:49 05/26/18 07:49 05/26/18 07:49 - Physical Exam General: no distress Respiratory: clear to auscultation Abdomen: soft, non tender, nondistended, appropriately tender Wound: healing well Surgery Progress Note: Results - Labs Result Diagrams: 05/23/18 11:26 05/22/18 10:56 Surgery Progress Note: A/P - Problem (1) Nausea & vomiting Current Visit: No Code(s): R11.2 - NAUSEA WITH VOMITING, UNSPECIFIED Status : Acute Assessment and Plan: Post op incisional hernia, dilation Gastro-J stricture -She is tolerating GI soft diet -Still limited on mobility although I think this is mostly her baseline -possible dc later today, if not ready for DC soon will arrange for long term
[2018-05-26] MEDS: Cyclobenzaprine 10 MG TAB PO PRN ×2 (11:09→22:01)
--- NOTE | 2018-05-26 11:13 | PQF ---
DOMINIC KHAN BRYAN DAVID MD [phone] [facility] 3317 [id number] CLINICAL DOCUMENTATION IMPROVEMENT CLARIFICATION FORM: ICD-10 Updated PLEASE DO AN ADDENDUM TO THE PROGRESS NOTE WITH ANY DOCUMENTATION UPDATES OR ADDITIONS AND CARRY THROUGH TO DC SUMMARY. THANK YOU. DATE: 05/26/2018 ATTN: DR. Khurram FRANCISCO Please exercise your independent, professional judgment in responding to the clarification form. Clinical indicators are provided on the bottom of this form for your review. Please check appropriate box(s): [ ] Aspiration Pneumonia [ ] Empirically treating Gram Negative Pneumonia [ ] Atelectasis [ ] Other diagnosis [ ] Unable to determine In addition, please specify: Present on Admission (POA): [ ] Yes [ ] No [ ] Unable to determine For continuity of documentation, please document condition throughout progress notes and discharge summary. Thank You. CLINICAL INDICATORS - SIGNS / SYMPTOMS / LABS WBC : 23.9 ( 2-1) T: 101.1 (2-1) PN 2-1 (NOLAN) : TEMP MAX OF 101, I STARTED ANTIBIOTICS, WILL CHECK UA AND CXR. SHE HAS VOMITED A FEW TIMES, WANT TO RULE OUT ASPIRATION. PN 2 (OLAF) : CXR DID SHOW SOME DENSITY IN RT LUNG BASE, SHE HAS BEEN STARTED ON ANTIBIOTICS FOR THAT. IMPRESSION: 4.) PNEUMONIA VS ATELECTASIS. SHE HAS BEEN STARTED ON ANTIBIOTICS. CXR 2-1: FINDINGS: ...THERE HAS BEEN INTERVAL DEVELOPMENT IF MILD PATCHY DENSITIES AT THE RIGHT LUNG BASE WHICH COULD BE RELATED TO DEVELOPING AREA OF PNEUMONITIS/PNEUMONIA. THERE IS MILD LINEAR ATELECTASIS VERSUS SCARRING AT THE LT LUNG BASE. IMPRESSION : 1). INTERVAL DEVELOPMENT OF PATCHY DENSITY RIGHT LUNG BASE WHICH MAY BE R/T DEVELOPING PNEUMONIA. RISK: BALLOON DILATION OF GASTROJEJUNAL STRICTURE AND JEJUNOJEJUNAL STRICTURE (05/19) VOMITING ( 2-1) TREATMENT: IV ANTIBIOTIC (ZOSYN 2-1-PRESENT) IV FLUIDS ( D5 1/2 NS W/20 MEQ KCL, /- PRESENT) THANK YOU! SANDRA (This form is maintained as a part of the permanent medical record) 2014 [employer]. All Rights Reserved Sandra Cary RN, BSN [email or web address] Office: [phone] [facility]
[2018-05-26] MEDS: D5 1/2 NS w/20 mEq KCL 1,000 ML IV SCH (15:18)
[2018-05-26] MEDS: Enoxaparin Sodium 40 MG/0.4 ML SYRINGE SC SCH (20:24)
[2018-05-26] MEDS: Promethazine HCl 25 MG in Sodium Chloride 0.9% 50 ML IVPB PRN (22:01)
[2018-05-26] MEDS: Zolpidem Tartrate 5 MG TAB PO PRN (22:01)
[2018-05-27] MEDS: Piperacillin/Tazobactam 3.375 GM in Sodium Chloride 0.9% 100 ML IVPB SCH ×4 (03:50→20:26)
[2018-05-27] MEDS: Metoclopramide HCl 10 MG/2 ML VIAL IVP SCH ×3 (03:50→20:25)
[2018-05-27] MEDS: HYDROcodone/Acetaminophen 7.5/325 mg Tablet PO PRN ×3 (03:59→22:08)
[2018-05-27] MEDS: Cyclobenzaprine 10 MG TAB PO PRN ×2 (03:59→22:08)
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
[2018-05-27] MEDS: Montelukast Sodium 10 mg Tablet PO SCH (09:30)
[2018-05-27] MEDS: levETIRAcetam 500 MG TAB PO SCH ×2 (09:30→20:25)
[2018-05-27] MEDS: Docusate 100 MG CAP PO SCH ×2 (09:30→20:26)
[2018-05-27] MEDS: Gabapentin 300 MG CAP PO SCH ×2 (09:30→20:25)
[2018-05-27] MEDS: lamoTRIgine 100 MG TAB PO SCH ×2 (09:35→20:24)
[2018-05-27] MEDS: Famotidine/PF 20 mg/2ml Vial SLOW IVP SCH ×2 (09:35→20:25)
[2018-05-27] MEDS: Pantoprazole 40 MG VIAL IVP SCH (09:36)
[2018-05-27] MEDS ORDERED: Cyanocobalamin 1000 MCG/ML VIAL IM SCH (15:00)
[2018-05-27] MEDS: Simethicone Chewable 80 MG TAB PO PRN (17:59)
[2018-05-27] MEDS: D5 1/2 NS w/20 mEq KCL 1,000 ML IV SCH (18:48)
[2018-05-27] MEDS: Enoxaparin Sodium 40 MG/0.4 ML SYRINGE SC SCH (20:27)
[2018-05-27] MEDS: Zolpidem Tartrate 5 MG TAB PO PRN (22:08)
[2018-05-28] MEDS: Metoclopramide HCl 10 MG/2 ML VIAL IVP SCH ×2 (03:23→11:33)
[2018-05-28] MEDS: Promethazine HCl 25 MG in Sodium Chloride 0.9% 50 ML IVPB PRN (03:23)
[2018-05-28] MEDS: Piperacillin/Tazobactam 3.375 GM in Sodium Chloride 0.9% 100 ML IVPB SCH ×3 (03:23→13:16)
[2018-05-28] MEDS: Docusate 100 MG CAP PO SCH (09:46)
[2018-05-28] MEDS: levETIRAcetam 500 MG TAB PO SCH (09:46)
[2018-05-28] MEDS: Gabapentin 300 MG CAP PO SCH (09:46)
[2018-05-28] MEDS: Montelukast Sodium 10 mg Tablet PO SCH (09:46)
[2018-05-28] MEDS: lamoTRIgine 100 MG TAB PO SCH (09:47)
[2018-05-28] MEDS: Pantoprazole 40 MG VIAL IVP SCH ×2 (09:48→13:16)
[2018-05-28] MEDS: Famotidine/PF 20 mg/2ml Vial SLOW IVP SCH ×2 (09:48→13:16)
[2018-05-28 12:04] VITALS: BP 106/69; TEMP 98.2
[2018-05-28] MEDS: Simethicone Chewable 80 MG TAB PO PRN (13:17)
[2018-05-28] MEDS: HYDROcodone/Acetaminophen 7.5/325 mg Tablet PO PRN (14:29)
[2018-05-28] MEDS: Cyclobenzaprine 10 MG TAB PO PRN (14:30)
--- NOTE | 2018-05-28 15:38 | DIS ---
DATE OF ADMISSION: 05/16/2018 DATE OF DISCHARGE: 05/28/2018 ADMIT DIAGNOSES: 1. History of incisional hernia repair with postop nausea and vomiting. 2. Previous gastrojejunal anastomosis stricture. 3. Previous jejunojejunostomy anastomosis stricture. 4. History of traumatic brain injury, chronic brain injury. PROCEDURES: Esophagogastroduodenoscopy by Dr. Angel with dilation of gastrojejunal and jejunojejunal strictures. CONDITION ON DISCHARGE: Improved. STAFF: Eyal Arce MD HOSPITAL COURSE: The patient was admitted with nausea and vomiting after ventral hernia repair. She was found to have evidence of gastrojejunal and jejunojejunal strictures. She underwent dilation of these by GI that improved her symptoms. Her small bowel follow-through after those procedure showed good contrast flow. She slowly got better. She is limited chronically by history of her total brain injury. Her vitamin levels were checked before discharge. She was given thiamine, although her thiamine level was pending at the time of discharge. Her B12 and iron levels were normal. On the day of discharge, she is doing well. She is discharged. Home Health is going to be set up to help her with nutrition at the custodial that she lives in. Prescriptions for [place] and Zofran, sent to [facility] on . Job ID: [id number]
== END 2018-05-28 14:45 | disposition home or self-care (01) | DRG 390 ==
LOC: ERS 21:55 → 3SE 05-16 00:06 → OBSVTOIN 05-16 10:44 → SJJU 05-22 09:47
PROVIDERS: ADMIT Surgery; ATTEND Surgery
PROC: 0D9670Z Drainage of Stomach with Drainage Device, Via Natural or Artificial Opening (ICD-10-PCS; 2018-05-15)
PROC: 0D768ZZ Dilation of Stomach, Via Natural or Artificial Opening Endoscopic (ICD-10-PCS; principal; 2018-05-19)
PROC: 0D7A8ZZ Dilation of Jejunum, Via Natural or Artificial Opening Endoscopic (ICD-10-PCS; 2018-05-19)
DX: K56.609 Unspecified intestinal obstruction, unspecified as to partial versus complete obstruction (principal); F41.9 Anxiety disorder, unspecified; G40.909 Epilepsy, unspecified, not intractable, without status epilepticus; K21.9 Gastro-esophageal reflux disease without esophagitis; Z90.49 Acquired absence of other specified parts of digestive tract; Z98.84 Bariatric surgery status
CPT/HCPCS: 36415; 71045; 74018; 74245; 74250; 80048; 80053; 81001; 82607; 82728; 84425; 85007; 85025; 85027; 87086; 96365; 96375; C1726; C9113; J0131; J1650; J2001; J2060; J2405; J2543; J2550; J2704; J2765; J3010; J3370; J3411; J7050; J8597; Q9963; S0028

== ENCOUNTER 2018-05-29 17:19 | Emergency (ER) | payer MEDICARE ==
[2018-05-29 17:52] LABS: #Basophils 0.1 thou/uL (0.0-0.2); #Eosinphils 0.6 thou/uL (0.0-0.7); #Lymphocytes 2.4 thou/uL (1.20-3.40); #Monocytes 0.7 thou/uL (0.11-0.59); %Basophils 0.5 % (0.0-1.0); %Eosinophils 5.4 % (0.0-10.0); %Lymphocytes 22.1 % (21.0-51.0); %Monocytes 6.1 % (0.0-10.0); %Neutrophils 65.9 % (42.0-75.0); Hemoglobin 12.6 g/dL (12.0-16.0); Mean Corpuscular HGB CONC 32.4 g/dL (32.0-36.0); Mean Corpuscular Hemoglobin 32.4 pg (27.0-31.0); Mean Corpuscular Volume 99.9 fL (78.0-98.0); Mean Platelet Volume 6.6 fL (7.4-10.4); Platelet Count 495 thou/uL (130-400); RBC Distribution Width 11.8 % (11.5-14.5); White Blood Cell (WBC) Count 10.7 thou/uL (4.8-10.8)
[2018-05-29 17:56] LABS: BHCG - Serum Negative (NEGATIVE); Pregs Control Background? CLEAR/WHITE (CLR/WHITE); Pregs Control Bar Appear? YES (CONTROL BAR)
--- NOTE | 2018-05-29 18:06 | RAD ---
ABDOMEN TWO VIEW: 05/29/18 HISTORY: Nausea and vomiting. COMPARISON: Radiograph from 2018. FINDINGS: Very few air fluid levels in the left upper quadrant of the abdomen. No overt dilatation. No free air under the hemidiaphragm is appreciated. Right upper quadrant surgical clips. Sutures noted around the suspected location of the stomach. Mild levoscoliosis lumbar spine. Patchy opacity right lung base. IMPRESSION: Findings most suggestive of a low grade ileus. POS: LAURA
[2018-05-29 18:15] LABS: ALT (SGPT) 7 U/L (8-55); AST (SGOT) 14 U/L (5-34); Albumin 2.9 g/dL (3.5-5.0); Alkaline Phosphatase 94 U/L (40-150); Anion Gap 13 mmol/L (10-20); BUN (Urea Nitrogen) 5 mg/dL (7.0-18.7); Bilirubin, Total 0.3 mg/dL (0.2-1.2); Calc. Creatinine Clearance 0 mL/min (70-130); Calcium 8.5 mg/dL (7.8-10.44); Carbon Dioxide 28 mmol/L (22-29); Chloride 103 mmol/L (98-107); Estimated GFR-MDRD 58; Globulin 3.3 g/dL (2.4-3.5); Glucose 72 mg/dL (70-105); Lipase 12 U/L (8-78); Potassium 3.5 mmol/L (3.5-5.1); Protein, Total 6.2 g/dL (6.0-8.3); Sodium 140 mmol/L (136-145)
[2018-05-29 18:37] LABS: Bilirubin Negative (Negative); Blood, Urine Negative (Negative); Clarity CLEAR (Clear); Glucose, Urine (Dipstick) Negative (Negative); Leukocyte Negative (Negative); Nitrite Negative (Negative); Protein, Urine (Dipstick) Negative (Neg-Trace); Specific Gravity, Urine 1.012 (1.002-1.036); Urobilinogen 0.2 mg/dL (0.2-1.0); pH, Urine 6.5 (5.0-9.0)
== END 2018-05-29 21:45 | disposition home or self-care (01) ==
LOC: ERS 17:19
DX: R11.2 Nausea with vomiting, unspecified (principal); K21.9 Gastro-esophageal reflux disease without esophagitis; G40.909 Epilepsy, unspecified, not intractable, without status epilepticus; F41.9 Anxiety disorder, unspecified; Z79.899 Other long term (current) drug therapy
CPT/HCPCS: 36415; 74019; 80053; 81003; 83690; 84703; 85025; 96360; 96361

== ENCOUNTER 2019-02-08 11:10 | Observation (INO) | payer MEDICARE, MEDICAID ==
--- NOTE | 2019-02-08 11:46 | RAD ---
EXAM: Single view of the chest HISTORY: Weakness and fatigue COMPARISON: 05/22/2018 FINDINGS: Single view of the chest shows a normal sized cardiomediastinal silhouette. Scarring is se en in the right costophrenic angle. There is no evidence of consolidation, mass, or pleural effusion. Degenerative changes are seen in the spine. IMPRESSION: No evidence of acute cardiopulmonary disease
[2019-02-08 12:00] LABS: #Basophils 0.1 thou/uL (0.0-0.2); #Eosinphils 0.2 thou/uL (0.0-0.7); #Lymphocytes 2.9 thou/uL (1.20-3.40); #Monocytes 0.6 thou/uL (0.11-0.59); #Neutrophils 6.8 thou/uL (1.40-6.50); %Basophils 0.5 % (0.0-1.0); %Eosinophils 1.6 % (0.0-10.0); %Lymphocytes 27.2 % (21.0-51.0); %Monocytes 5.8 % (0.0-10.0); Mean Corpuscular Volume 96.6 fL (78.0-98.0); Mean Platelet Volume 7.5 fL (7.4-10.4); Platelet Count 341 thou/uL (130-400); RBC Distribution Width 12.2 % (11.5-14.5); Red Blood Cell (RBC) Count 4.54 mill/uL (4.20-5.40); White Blood Cell (WBC) Count 10.5 thou/uL (4.8-10.8)
[2019-02-08 12:08] LABS: PTT 26.7 SEC (22.9-36.1); Prothrombin Time 13.2 SEC (12.0-14.7)
[2019-02-08 12:10] LABS: BHCG - Serum Negative (NEGATIVE); Pregs Control Background? CLEAR/WHITE (CLR/WHITE); Pregs Control Bar Appear? YES (CONTROL BAR)
[2019-02-08 12:26] LABS: Bilirubin Negative (Negative); Blood, Urine Negative (Negative); Clarity Clear (Clear); Glucose, Urine (Dipstick) Normal (Negative); Leukocyte Negative Leu/uL (Negative); Nitrite Negative (Negative); Protein, Urine (Dipstick) Negative (Neg-Trace); Urobilinogen Normal mg/dL (Less than 2)
[2019-02-08 12:27] LABS: ALT (SGPT) 10 U/L (8-55); AST (SGOT) 19 U/L (5-34); Albumin 4.1 g/dL (3.5-5.0); Alkaline Phosphatase 69 U/L (40-110); Anion Gap 13 mmol/L (10-20); BUN (Urea Nitrogen) 8 mg/dL (7.0-18.7); Bilirubin, Total 0.6 mg/dL (0.2-1.2); CK (CPK) 29 U/L (29-168); Calc. Creatinine Clearance 0 mL/min (70-130); Calcium 9.3 mg/dL (7.8-10.44); Carbon Dioxide 23 mmol/L (22-29); Chloride 107 mmol/L (98-107); Estimated GFR-MDRD 80; Globulin 3.4 g/dL (2.4-3.5); Glucose 83 mg/dL (70-105); Magnesium 2.1 mg/dL (1.6-2.6); Potassium 4.1 mmol/L (3.5-5.1); Protein, Total 7.5 g/dL (6.0-8.3); Sodium 139 mmol/L (136-145)
[2019-02-08 16:02] LABS: Lactic Acid 1.7 mmol/L (0.5-2.2)
[2019-02-08] MEDS ORDERED: HYDROcodone/Acetaminophen 5/325 mg Tablet ONE (18:05)
--- NOTE | 2019-02-08 18:52 | CT ---
CT HEAD WITHOUT CONTRAST: HISTORY: Weakness. FINDINGS: The ventricles have normal size and position. No evidence of intracranial mass or hemorrhage. No evid ence of infarct or edema. The sinuses and mastoids are clear. IMPRESSION: No acute abnormality. POS: AGW
[2019-02-08] MEDS ORDERED: Ondansetron ODT 4 MG TAB PO PRN (21:47)
[2019-02-08] MEDS ORDERED: Ondansetron PF 4 MG/2 ML Vial IVP PRN (21:47)
[2019-02-08] MEDS ORDERED: Ondansetron PF 4 MG/2 ML Vial ONE (21:48)
[2019-02-08] MEDS ORDERED: Ondansetron ODT 4 MG TAB ONE (23:50)
[2019-02-09] MEDS ORDERED: Melatonin 3 MG TAB PO PRN (03:26)
[2019-02-09] MEDS ORDERED: HYDROcodone/Acetaminophen 5/325 mg Tablet PO SCH (03:30)
[2019-02-09] MEDS ORDERED: HYDROcodone/Acetaminophen 5/325 mg Tablet ONE (03:33)
[2019-02-09] MEDS: Sodium Chloride 0.9% 1,000 ML IV SCH ×2 (03:43→20:15)
[2019-02-09 04:14] LABS: #Basophils 0.1 thou/uL (0.0-0.2); #Eosinphils 0.2 thou/uL (0.0-0.7); #Lymphocytes 2.9 thou/uL (1.20-3.40); #Monocytes 0.5 thou/uL (0.11-0.59); #Neutrophils 8.5 thou/uL (1.40-6.50); %Basophils 0.7 % (0.0-1.0); %Eosinophils 1.5 % (0.0-10.0); %Lymphocytes 23.5 % (21.0-51.0); %Monocytes 4.4 % (0.0-10.0); Hemoglobin 12.9 g/dL (12.0-16.0); Mean Corpuscular HGB CONC 33.9 g/dL (32.0-36.0); Mean Corpuscular Hemoglobin 32.5 pg (27.0-31.0); Mean Corpuscular Volume 95.8 fL (78.0-98.0); Platelet Count 304 thou/uL (130-400); RBC Distribution Width 12.2 % (11.5-14.5); Red Blood Cell (RBC) Count 3.97 mill/uL (4.20-5.40); White Blood Cell (WBC) Count 12.1 thou/uL (4.8-10.8)
[2019-02-09 04:36] LABS: Anion Gap 12 mmol/L (10-20); BUN (Urea Nitrogen) 8 mg/dL (7.0-18.7); CRP (Inflammatory) Less than 0.50 mg/dL (= or < 0.5); Calc. Creatinine Clearance 0 mL/min (70-130); Calcium 8.7 mg/dL (7.8-10.44); Carbon Dioxide 23 mmol/L (22-29); Chloride 109 mmol/L (98-107); Estimated GFR-MDRD 85; Glucose 92 mg/dL (70-105); Potassium 4.5 mmol/L (3.5-5.1); Sodium 139 mmol/L (136-145)
--- NOTE | 2019-02-09 07:09 | HP ---
TIME OF ASSESSMENT: 0200 hours. CHIEF COMPLAINT: Generalized weakness. HISTORY OF PRESENT ILLNESS: Ms. Middleton is a 43-year-old woman, who presents with complaints of generalized weakness since last . She reports experiencing occasional chills, but denies any fevers. States she has progressively felt worse. Reports having a mild frontal headache without any vision or speech changes. Reports having mild nausea without any vomiting. Has been moving her bowels as normal. Denies having any abdominal pain. Has not had any urinary symptoms. Denies chest pain, palpitations, or shortness of breath. Has not had a cough or hemoptysis. The patient has been seen in the Emergency Department and has undergone studies including an EKG which showed normal sinus rhythm with a heart rate of 73. She had laboratory studies done which demonstrated a white count of 10.5, hemoglobin of 14, hematocrit 42.8, neutrophils was 6.8. She had an elevated lactic acid of 2.4. CK of 29. LFTs unremarkable and renal function unremarkable as well. The lactic acid was repeated and normal at 1.7. This was after she had received 1 liter of normal saline and had also been given one tablet of [place] 5/325 mg for her chronic back pain. The patient states she has degenerative disk disease, and her pain is not worse than usual. The patient states that she wonders if her feeling generally unwell is due to coming off her anti-seizure medications and her gabapentin. REVIEW OF SYSTEMS: All other review of systems apart from those mentioned above in HPI are negative. DIAGNOSTIC STUDIES: Of note, the patient did undergo a chest x-ray that was unremarkable as well as urinalysis which was normal. Urine test was negative. She also underwent a CT of the brain which showed no acute abnormality. ALLERGIES: NO KNOWN DRUG ALLERGIES. CURRENT MEDICATIONS: 1. Flexeril. 2. Gabapentin. 3. [place]. 4. Lamotrigine. 5. Keppra. 6. Montelukast. 7. Protonix. 8. Reglan. 9. Zofran. PAST MEDICAL HISTORY: 1. Seizure disorder. 2. Neuropathy. 3. GERD. 4. Anxiety. 5. Chronic back pain. PAST SURGICAL HISTORY: 1. Ankle surgery. 2. Appendectomy. 3. Cholecystectomy. 4. Hernia repair in April 2018. 5. Bilateral knee surgeries. 6. Gastric sleeve. 7. Colectomy for bowel obstruction. SOCIAL HISTORY: The patient denies any alcohol consumption or illicit drug use. Denies any tobacco use. PHYSICAL EXAMINATION: GENERAL: The patient appears fatigued but well developed, and in no acute distress. VITAL SIGNS: Temperature 98.9, pulse 78, respirations 17, blood pressure 117/71 , and O2 saturation 100% on room air. HEENT: Normocephalic and atraumatic. Pupils are equal, round, and reactive to light. Sclerae without icterus. Oropharynx is clear. NECK: Supple. LUNGS: Clear to auscultation bilaterally without any wheezes, rales, or rhonchi. CARDIAC: Regular rate and rhythm. ABDOMEN: Soft, nontender, nondistended. Normoactive bowel sounds present. EXTREMITIES: No lower leg swelling or edema. NEUROLOGIC: Alert and oriented x3. No neuro deficits. Power of 5/5 in all limbs. Sensation intact. Facial movements are normal. SKIN: Warm and dry without jaundice. The patient with three small bruises on the right calf, which she states seem to be improving and are non-painful. INVESTIGATIONS: As mentioned above in HPI. IMPRESSION AND PLAN: Ms. Middleton is a 43-year-old woman, who presents with complaints of generalized weakness and malaise. She has been referred for management of the following. 1. Weakness. She did have CT of the brain due to concern for possible cerebrovascular accident; however, the patient without any neuro deficits or altered sensation. There is some inconsistency with exam when asked to sit forward. The patient appeared very weak and unable to pull herself forward, however, once instructed on intention to examine her back for any skin changes and the central lung, she quickly pulled herself up with much more ease and sat forward on her own. We will repeat labs this morning, and we will add CRP as well as ESR. We will check a respiratory viral panel. We will see if there is any underlying cause for the generalized weakness. 2. Back pain. The patient complaining of discomfort in her back for which she takes hydrocodone. We will give a one time dose for now. The pain appears to be at baseline. We will also try lidocaine patch. 3. Insomnia. The patient complaining of difficulty sleeping, which is longstanding. We will give melatonin. 4. History of seizures. The patient has been non-compliant with Lamictal and Keppra. She states it is due to the fact she has not had any seizures in the last eight years. She wishes to remain off these for now. Day Team to decide if neuro consult would be indicated to clear her from requiring these medications. 5. Gastrointestinal prophylaxis. Famotidine 20 mg p.o. b.i.d. 6. Deep venous thrombosis prophylaxis. Mechanical SCDs. The patient is ambulatory. 7. Code status, FULL. 8. Surrogate decision maker is her boyfriend, Sage Middleton. The patient's case was discussed with attending for further recommendations. Job ID: [id number] MTDD
[2019-02-09] MEDS ORDERED: Famotidine 20 MG TAB ONE (09:23)
[2019-02-09] MEDS: Famotidine 20 MG TAB PO SCH ×2 (09:33→21:03)
[2019-02-09] MEDS: Lidocaine 5% Patch TD SCH (09:33)
[2019-02-09 12:00] VITALS: BMI 33.2
[2019-02-09] MEDS: Acetaminophen 325 MG TAB PO PRN ×2 (12:34→21:07)
[2019-02-09] MEDS: Gabapentin 300 MG CAP PO SCH (21:03)
[2019-02-09] MEDS: lamoTRIgine 100 MG TAB PO SCH (21:03)
[2019-02-09] MEDS: levETIRAcetam 500 MG TAB PO SCH (21:03)
[2019-02-09] MEDS: Amitriptyline HCl 25 MG TAB PO SCH (21:04)
[2019-02-09] MEDS: Lidocaine Patch Removal TOP SCH (21:21)
[2019-02-10] MEDS: HYDROcodone/Acetaminophen 10/325 mg Tablet PO PRN ×2 (05:06→20:26)
[2019-02-10 06:50] LABS: #Basophils 0.1 thou/uL (0.0-0.2); #Eosinphils 0.3 thou/uL (0.0-0.7); #Monocytes 0.4 thou/uL (0.11-0.59); #Neutrophils 5.4 thou/uL (1.40-6.50); %Basophils 0.9 % (0.0-1.0); %Eosinophils 3.2 % (0.0-10.0); %Lymphocytes 24.4 % (21.0-51.0); %Monocytes 5.2 % (0.0-10.0); %Neutrophils 66.4 % (42.0-75.0); Hemoglobin 12.8 g/dL (12.0-16.0); Mean Corpuscular HGB CONC 33.4 g/dL (32.0-36.0); Mean Corpuscular Hemoglobin 32.4 pg (27.0-31.0); Mean Corpuscular Volume 96.9 fL (78.0-98.0); Platelet Count 283 thou/uL (130-400); RBC Distribution Width 12.2 % (11.5-14.5); Red Blood Cell (RBC) Count 3.95 mill/uL (4.20-5.40); White Blood Cell (WBC) Count 8.2 thou/uL (4.8-10.8)
[2019-02-10 07:08] LABS: Anion Gap 10 mmol/L (10-20); BUN (Urea Nitrogen) 6 mg/dL (7.0-18.7); Calc. Creatinine Clearance 131 mL/min (70-130); Calcium 8.7 mg/dL (7.8-10.44); Carbon Dioxide 25 mmol/L (22-29); Chloride 109 mmol/L (98-107); Estimated GFR-MDRD 85; Glucose 90 mg/dL (70-105); Potassium 3.8 mmol/L (3.5-5.1); Sodium 140 mmol/L (136-145)
[2019-02-10] MEDS: Gabapentin 300 MG CAP PO SCH ×3 (09:44→20:17)
[2019-02-10] MEDS: levETIRAcetam 500 MG TAB PO SCH ×2 (09:44→20:15)
[2019-02-10] MEDS: lamoTRIgine 100 MG TAB PO SCH ×2 (09:44→20:17)
[2019-02-10] MEDS: Famotidine 20 MG TAB PO SCH ×2 (09:44→20:17)
[2019-02-10] MEDS: Lidocaine 5% Patch TD SCH (09:45)
[2019-02-10] MEDS ORDERED: FLU VACC QS2019-20(6MOS UP)/PF 60 MCG/0.5 ML SYRINGE IM ONE (13:30)
--- NOTE | 2019-02-10 15:36 | PDOC.EVN ---
Event Note - Event Note Event Note: Rehab declined. recomended HH, out patient rehab. Spoke to the patient and explained at length.
[2019-02-10 16:29] VITALS: TEMP 97.6
[2019-02-10 16:33] VITALS: BP 104/71
[2019-02-10] MEDS: Sodium Chloride 0.9% 1,000 ML IV SCH (16:39)
[2019-02-10] MEDS: Amitriptyline HCl 25 MG TAB PO SCH (20:16)
[2019-02-10] MEDS: Lidocaine Patch Removal TOP SCH (20:17)
== END 2019-02-10 20:38 | disposition home health service (06) ==
LOC: ERS 11:10 → ERHOLD 18:00 → 2SE 02-09 11:17
PROVIDERS: ADMIT Family Medicine; ATTEND Family Medicine
DX: R53.1 Weakness (principal); R51 Headache; G89.29 Other chronic pain; M54.9 Dorsalgia, unspecified; G47.00 Insomnia, unspecified; G40.909 Epilepsy, unspecified, not intractable, without status epilepticus; K21.9 Gastro-esophageal reflux disease without esophagitis; F41.9 Anxiety disorder, unspecified; G62.9 Polyneuropathy, unspecified; Z79.899 Other long term (current) drug therapy; Z90.49 Acquired absence of other specified parts of digestive tract; Z98.84 Bariatric surgery status; Z98.890 Other specified postprocedural states
CPT/HCPCS: 70450; 71045; 80048 ×2; 81003; 82550; 83605; 83735; 84484; 84703; 85025 ×2; 85610; 85652; 85730; 86140; 87633; 90686; 93005; 96360; 96361 ×3; 97116; 97139 ×2; 97530; 99285; G0008; G0378 ×4; 36415; 80053; 84443; 90471; J2405; Q0162